=== PATIENT | male | born 1975 | race Two or more races ===

== ENCOUNTER → 2021-04-01 08:42 | Outpatient (REF) | payer OTHER, SELFPAY ==
--- NOTE | 2021-04-01 09:00 | CA_ITS ---
Acquisition Time: 2021-04-01 08:44:45 Total Exercise Time: 00:09:44 Test Indications: Chest Pain Medications: SEE CHART Protocol: DOMINGA Max HR: 190 BPM 108% of Pred: 175 BPM Max BP: 202/070 mmHG Max Work Load: 11.3 METS Exercise stress test with exercise 9 min 44 sec of Dominga protocol, achieving 108% of MPHR, 11.1 MET workload, without anginal symptoms, without arrythmia, with hypertensive response to exercise with max BP 202/70, without EKG changes meeting criteria for ischemia. In recovery BP quickly improved back to baseline. Test reviewed with Dr Lewis. Referred By: Zayda Fisher Overread By: QUINTIN CANO
== END ==
LOC: HO.CARD 08:42
PROVIDERS: Visit Provider Nurse Practitioner Family
DX: R07.89 Other chest pain (principal)
CPT/HCPCS: 93017

== ENCOUNTER 2022-01-19 09:16 | Outpatient (REF) | payer BC, SELFPAY ==
--- NOTE | ~2022-01-19 | XR_ITS ---
EXAMINATION: XR CHEST CLINICAL INFORMATION: Dyspnea. COMPARISON: None TECHNIQUE: 2 views of the chest were obtained. FINDINGS: No significant abnormality is noted involving the heart, lungs, mediastinum, bony thorax or soft tissues. XR/XR chest 2V IMPRESSION: Unremarkable chest examination.
--- NOTE | ~2022-01-19 | FL_ITS ---
EXAMINATION: XR FLUOROSCOPY UPPER GI WITH AIR CLINICAL INFORMATION: Gastroesophageal reflux disease without esophagitis. COMPARISON: None. TECHNIQUE: Routine upper GI air-contrast study was performed in upright and lying position. FINDINGS: Following oral administration of thick barium and effervescent granules, there is normal propagation of bolus from the oral cavity through the pharynx and esophagus and into the stomach without any evidence of obstruction, narrowing or stricture. On placing patient supine and prone lying, the course, caliber and peristalsis of the stomach, duodenal bulb and the sweep are normal. The mucosal pattern of the stomach and the duodenum is normal. There is minimal gastroesophageal reflux without hiatal hernia. FLUOROSCOPY TIME: 1.5 minutes. DOSE AREA PRODUCT: 34.671 uGy-m2 (microgray-meter squared). FL/FL upper GI w air IMPRESSION: Minimal gastroesophageal reflux without hiatal hernia.
[2022-01-19 09:38] LABS: MANUAL DIFF FLAG NO
[2022-01-19 09:49] LABS: Basophils Percent Auto 0.4 % (0-2); Eosinophils Absolute Auto 0.6 X10*3/uL (0.0-0.4); Eosinophils Percent Auto 8.5 % (0-4); Hematocrit 46.7 % (42.0-52.0); Hemoglobin 15.8 g/dl (14.0-18.0); Imm Gran Abs Auto 0.03 X10*3/uL (0.00-0.03); Imm Gran Pct Auto 0.4 % (0.0-0.4); Lymphocytes Absolute Auto 2.4 X10*3/uL (1.2-4.9); Lymphocytes Percent Auto 31.2 % (20-40); Mean Corpuscular HGB Conc 33.8 g/dl (31.0-36.0); Mean Corpuscular Hemoglobin 29.2 pg (27.0-33.0); Mean Corpuscular Volume 86.2 fL (80.0-98.0); Mean Platelet Volume 8.5 fL (9.4-12.4); Monocytes Absolute Auto 0.5 X10*3/uL (0.1-1.2); Monocytes Percent Auto 6.7 % (2-11); Neutrophils Percent Auto 52.8 % (45-73); Platelet Count 305 X10*3/uL (160-400); Red Blood Count 5.42 X10*6/uL (4.60-5.80); Red Cell Distribution Width 11.9 % (11.0-16.0); White Blood Count 7.6 X10*3/uL (4.8-10.8)
[2022-01-19 10:14] LABS: Alanine Aminotransferase 48 U/L (0-40); Albumin Level 4.6 g/dL (3.5-5.0); Alkaline Phosphatase 76 U/L (39-117); Anion Gap 14 (12-20); Aspartate Amino Transferase 29 U/L (5-37); Bilirubin Total 0.6 mg/dL (0.0-1.0); Blood Urea Nitrogen 16 mg/dL (9-16); Calcium 9.3 mg/dL (8.4-10.2); Carbon Dioxide 25 mmol/L (22-29); Chloride 105 mmol/L (96-108); Cholesterol 178 mg/dL; Estimated Average Glucose 111 mg/dL; Estimated Glomerular Filt Rate > 60; Glucose Fasting 100 mg/dL (60-99); HDL Cholesterol 45 mg/dL; Hemoglobin A1c % 5.5 %; LDL Cholesterol Calculated 118 mg/dl; Potassium 4.9 mmol/L (3.3-5.1); Sodium 139 mmol/L (135-145); Triglycerides 78 mg/dL
[2022-01-19 10:36] LABS: TSH reflex Free T4 0.81 uIU/mL (0.32-4.0); Vitamin D 25-OH Total 30.6 ng/mL (>30)
[2022-01-19 11:01] LABS: Appearance Urine Clear; Color Urine Yellow; Glucose Urine UA Negative (Negative); Leukocyte Esterase Urine Negative (Negative); Nitrite Urine Negative (Negative); PH 5.5 (5.0-9.0); Specific Gravity - Urine 1.015 (1.005-1.025); Urine Blood Negative (Negative); Urine Ketones Negative (Negative); Urine Protein Negative (Neg-Trace)
== END 2022-01-19 09:17 | disposition home or self-care (01) ==
LOC: HO.XRAY 09:16
PROVIDERS: PCP Internal Medicine; Visit Provider Internal Medicine
DX: R06.00 Dyspnea, unspecified (principal); K21.9 Gastro-esophageal reflux disease without esophagitis; I10 Essential (primary) hypertension; E78.00 Pure hypercholesterolemia, unspecified; R73.01 Impaired fasting glucose; E55.9 Vitamin D deficiency, unspecified
CPT/HCPCS: 36415; 71046; 74246; 80053; 80061; 81003; 82306; 83036; 84443; 85025

== ENCOUNTER 2022-05-18 08:49 | Outpatient (REF) | payer BC, SELFPAY ==
--- NOTE | 2022-05-18 10:30 | PFT_ITS ---
FLOWS: FEV1 95% of predicted at 3.72 L. FVC 95% of predicted at 4.70 L. FEV1 to FVC ratio of 0.79. Positive bronchodilator response. LUNG VOLUMES: Total lung capacity 90% of predicted at 6.13 L. Residual volume 91% of predicted at 1.74 L. Slow vital capacity 90% of predicted at 4.39 L. Expiratory reserve volume 36% of predicted at 0.54 L. Diffusion capacity is normal. IMPRESSION: No obstructive or restrictive ventilatory defect. Positive bronchodilator response. Decreased expiratory reserve volume suggests extrathoracic restriction likely secondary to abdominal obesity. Cedrick Barrientos MD AP/MODL / [id number]
== END 2022-05-18 08:50 | disposition home or self-care (01) ==
LOC: HO.RESP 08:49
PROVIDERS: PCP Internal Medicine; Visit Provider Internal Medicine
DX: R06.09 Other forms of dyspnea (principal)
CPT/HCPCS: 94060; 94727; 94729

== ENCOUNTER 2022-09-23 09:50 | Outpatient (REF) | payer BC, SELFPAY ==
[2022-09-23 11:11] LABS: Baso%MD 0.7 %; Eos%MD 9.9 %; Hematocrit 44.2 % (42.0-52.0); Hemoglobin 15.1 g/dl (14.0-18.0); IG%MD 0.3 %; Lymph%MD 34.7 %; Mean Corpuscular HGB Conc 34.2 g/dl (31.0-36.0); Mean Corpuscular Hemoglobin 29.7 pg (27.0-33.0); Mean Corpuscular Volume 86.8 fL (80.0-98.0); Mono%MD 7.6 %; Neut%MD 46.8 %; Platelet Count 319 X10*3/uL (160-400); Red Blood Count 5.09 X10*6/uL (4.60-5.80); Red Cell Distribution Width 12.4 % (11.0-16.0); White Blood Count 7.4 X10*3/uL (4.8-10.8)
[2022-09-23 12:02] LABS: Band Neutrophils Percent 1 % (3-5); Eosinophils Absolute Manual 0.4 X10*3/uL (0.0-0.4); Eosinophils Percent Manual 6 % (0-4); Lymphocytes Absolute Manual 2.7 X10*3/uL (1.2-4.9); Lymphocytes Percent Manual 36 % (20-40); Monocytes Absolute Manual 0.4 X10*3/uL (0.1-1.2); Monocytes Percent Manual 6 % (2-11); Neutrophils Absolute Manual 3.8 X10*3/uL (2.0-8.3); Neutrophils Percent Manual 51 % (45-73)
[2022-09-23 12:03] LABS: Platelet Estimate NORMAL (NORMAL); Platelet Morphology Comment NORMAL; RBC Morphology NORMAL
== END 2022-09-23 09:51 | disposition home or self-care (01) ==
LOC: HO.LAB 09:50
PROVIDERS: PCP Internal Medicine; Visit Provider Internal Medicine
DX: J45.909 Unspecified asthma, uncomplicated (principal); G47.33 Obstructive sleep apnea (adult) (pediatric); Z91.09 Other allergy status, other than to drugs and biological substances
CPT/HCPCS: 36415; 82785; 85007; 85027; 86003

== ENCOUNTER 2023-11-10 10:38 | Outpatient (AMB) | payer BC, SELFPAY ==
[2023-11-10 10:39] VITALS: BP 118/82; PULSE 87; O2SAT 98; BMI 33.4
--- NOTE | 2023-11-10 10:39 | A.OFFPC_ITS ---
Vital Signs 11/10/23 10:39 Height 5 ft 9 in Weight 226 lb 0.8 oz BMI 33.4 BP 118/82 Blood Pressure Location Lt brachial Position Sitting Pulse 87 Pulse Source Pulse Oximeter Pulse Oximetry (%) 98 Oxygen Delivery Method Room Air Intake Visit Reasons: annual exam Intake Note: Patient is here today for a physical. Cook Dinner Required: No Allergies No Known Allergies Allergy (Verified 11/10/23 11:33) Medication List - Last Reconciled 11/10/23 by David Yen MD albuterol sulfate 90 mcg/actuation (Ventolin HFA) 2 puffs inhalation Q6H PRN 30 days famotidine 20 mg PO BID PRN fluticasone propion-salmeterol 250-50 mcg/dose (Wixela Inhub) 1 inh inhalation BID pantoprazole 40 mg PO DAILY 90 days Tobacco use date assessed: 11/10/23 Dental Screening Dental Screen Date: 11/10/23 Did you have a dental visit in the last 12 months?: Yes Did you have a dental problem in the last 6 months where you did not have access to dental care?: No Was dental information given to patient?: Patient has dentist HPI annual exam HPI Details Patient comes in today for his annual physical examination States that he has been experiencing increased pain over his right shoulder for a few weeks now States that he has tried taking OTC Tylenol and ibuprofen over the past couple weeks with very little relief Relates that he has also been experiencing increased constipation lately States that he feels okay otherwise He denies any headaches or dizziness Denies any chest pains, no shortness of breath - states that his asthma has been well controlled on his current inhalers No nausea /vomiting, no abdominal pain but reports experiencing recurrent bloating sensation lately due to his recently increasing constipation States that he has noticed that he has had to wake up a few times in the middle night to go to the bathroom recently Has also noticed occasional urinary frequency at times lately; he denies any dysuria PFSH Medical History (Updated 11/11/23 @ 22:42 by David Yen MD) ZACH (obstructive sleep apnea) Allergic asthma Obesity (BMI 30-39.9) Vitamin D deficiency Impaired fasting glucose Pure hypercholesterolemia Obstructive sleep apnea GERD without esophagitis Surgical History (Updated 11/10/23 @ 11:35 by David Yen MD) Hx of appendectomy History of colonoscopy (~09/20/08) History of shoulder surgery (~2010) Family History Mother Heart disease Father Lung cancer Social History Housing: House Alcohol intake: current Alcohol intake frequency: a few times a week Patient Tobacco Use Status: Former Tobacco user e-Cigarette/Vaping Use: Never Used Second Hand Smoke Exposure: Yes service: Yes Current occupational status: retired and disabled Cognitive needs: No Hearing needs: No Vision needs: Yes Questionnaire PHQ-9 Over the last 2 weeks, how often have you been bothered by any of the following problems? 1. Little interest or pleasure in doing things: not at all 2. Feeling down, depressed, or hopeless: not at all 3. Trouble falling or staying asleep, or sleeping too much: not at all 4. Feeling tired or having little energy: not at all 5. Poor appetite or overeating: not at all 6. Feeling bad about yourself - or that you are a failure or have let yourself or your family down: not at all 7. Trouble concentrating on things, such as reading the newspaper or watching television: not at all 8. Moving or speaking so slowly that other people could have noticed. Or the opposite - being so fidgety or restless that you have been moving around a lot more than usual: not at all 9. Thoughts that you would be better off or of hurting yourself in some way: not at all Total score: 0 Depression Screening Interpretation: Negative Depression Screening Done: Yes 21189 - PHQ-9 Billing: Yes Source: Developed by Drs. Sukhi Rogers, Megan Sands, Levi Thompson and colleagues, with an educational barb from [employer]. Thrive Questionnaire Date Thrive assessed: 11/10/23 I am a: Patient What is your living situation today?: I have a steady place to live Within the past 12 months, did the food you bought not last and you didn't have the money to get more?: Never true Within the past 12 months, did you worry whether your food would run out before you got money to buy more?: Never true Do you have trouble paying for medicines?: No Do you have trouble getting transportation to medical appointments?: No Do you have trouble paying your heating and electricity bill?: No Do you have trouble taking care of your child, family member or friend?: No Do you have trouble with day-to-day activities such as bathing, preparing meals, shopping, managing finances, etc.?: No Are you currently unemployed and looking for a job?: No Are you interested in more education?: No Please select the resources that you would like help with: None Currently or been in a relationship where the following occur: No concerns reported THRIVE Score: 0 AUDIT C Alcohol Use Questionnaire (AUDIT-C) 1. How often do you have a drink containing alcohol?: Monthly or less 2. How many drinks containing alcohol do you have on a typical day when you are drinking?: 1 or 2 3. How often do you have six or more drinks on one occasion?: Never Total Score: 1 Score Reviewed/Action Taken: Yes DAYA-7 AMB Questionnaire DAYA-7 Date DAYA - 7 assessed: 11/10/23 Feeling nervous, anxious, or on edge: 0 = Not at all Not being able to stop or control worryin = Not at all Worrying too much about different things: 0 = Not at all Trouble relaxin = Not at all Being so restless that it is hard to sit still: 0 = Not at all Becoming easily annoyed or irritable: 0 = Not at all Feeling afraid as if something awful might happen: 0 = Not at all Total DAYA-7 score (0-4 normal; 5-9 mild; 10-14 moderate; 15-21 severe): 0 Source: Developed by Drs. Sukhi Rogers, Megan Sands, Levi Thompson and colleagues, with an educational barb from [employer]. Review of Systems Const Denies chills, Denies fatigue, Denies fever(s), Denies headache(s), Denies malaise and Denies weakness Eyes Denies blurry vision, Denies change in vision, Denies irritation and Denies itchy eyes ENT Denies dysphagia, Denies dizziness, Denies otalgia, Denies headache(s), Denies nasal congestion, Denies neck pain, Denies odynophagia and Denies sore throat Card Denies chest pain, Denies rapid heart rate, Denies irregular heart rhythm, Denies palpitations and Denies dyspnea Resp Denies chest congestion, Denies cough, Denies dyspnea and Denies wheezing GI Denies abdominal pain, Reports bloating (frequent lately), Reports constipation (increasing), Denies dysphagia, Denies heartburn, Denies diarrhea, Denies nausea, Denies odynophagia and Denies vomiting Denies hematuria, Denies difficulty urinating, Denies dysuria, Reports nocturia (at times), Reports urinary frequency (recently) and Denies urinary urgency Musc Denies back pain, Reports arthralgias (increased over the right shoulder), Denies joint swelling, Denies muscle weakness and Denies neck pain Skin/Breast Denies change in pigmentation, Denies lesions, Denies rash and Denies unusual bruising Neuro Denies dizziness, Denies headache(s), Denies paresthesias and Denies weakness Endo Denies fatigue and Denies palpitations Aller/Immun Denies itchy eyes and Denies wheezing Physical exam (Primary Care) Vital Signs: Last Vital Signs Pulse 87 11/10/23 10:39 BP 118/82 11/10/23 10:39 Pulse Ox 98 11/10/23 10:39 Oxygen Delivery Method Room Air 11/10/23 10:39 BMI result Body Mass Index 33.4 Tobacco/Smoking Status: Tobacco use Status Tobacco use date assessed 11/10/23 11/10/23 10:40 Patient Tobacco Use Status Former Tobacco user 11/10/23 10:40 e-Cigarette/Vaping Use Never Used 11/10/23 10:40 PHQ-9: PHQ-9 Score PHQ-9: Total score 0 11/10/23 11:50 Depression Screening Interpretation: Negative Thrive Assessment: Date of Thrive Assessment Date Thrive assessed 11/10/23 11/10/23 10:40 Currently or been in a relationship where the following occur: No concerns reported Const General: no acute distress, alert and awake Orientation/consciousness: patient oriented x3 HENMT Head: Yes normocephalic and Yes atraumatic Ears: external ears normal, TM's normal bilaterally and EAC's normal General nose exam: No nasal discharge present Face and sinus: Yes normal facial exam and Yes sinuses nontender Teeth and gingiva: dentition normal Throat: Yes posterior oropharynx normal and Yes tonsils normal (no TP congestion) Eyes Eyelids: Yes eyelids normal Conjunctivae: conjunctivae normal Pupils: Equal, round and reactive pupils present EOM: EOMs intact bilaterally Neck Neck: Yes no lymphadenopathy and Yes supple Thyroid: Thyroid normal Resp Auscultation: clear to auscultation bilaterally, no rales and no wheezes Cardio Rate: regular rate Rhythm: regular rhythm Heart sounds: no murmurs GI Palpation (GI): Soft to palpation, nontender and No hepatosplenomegaly present Auscultation: normal bowel sounds General: Yes no CVA tenderness Back/Spine/Pelvis Back: no CVA tenderness Thoracic/Lumbar Spine: thoracic and lumbar spine normal to inspection Skin Lesions: no lesions Rashes: no rashes Neuro General: patient oriented x3, moves all extremities, no focal motor deficits and CN's II-XI intact bilaterally Cranial nerves: Yes Equal, round and reactive pupils present Cognition (Neuro): normal cognition Gait exam (Neuro): Normal gait present Extrem General: Yes no clubbing, cyanosis or edema Right upper extremity: shoulder/upper arm Details: tenderness Location: of the A-C joint; no swelling Assessment and Plan Assessment & Plan (1) Annual physical exam: Code(s): Z00.00 - Encounter for general adult medical examination without abnormal findings Plan: Check labs (2) Right shoulder pain: Code(s): M25.511 - Pain in right shoulder Qualifiers: Chronicity: acute Qualified Code(s): M25.511 - Pain in right shoulder Plan: Will send patient for x-rays of the right shoulder for further evaluation Will start him for now on Tramadol 50 mg TID PRN for increased pain (3) Constipation: Code(s): K59.00 - Constipation, unspecified Qualifiers: Constipation type: unspecified constipation type Qualified Code(s): K59.00 - Constipation, unspecified Plan: Patient is encouraged to increase his oral fluids and dietary fiber intake Will start him on Senna 8.6 mg 1 to 2 tablets Q HS PRN (4) Allergic asthma: Comment: Longstanding history, Eiosinophilia , 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 Patient was educated in detail about this. A list of possible triggers was discussed with him. Baseline allergy testing ordered ( CBC with diff, IgE level, RAST allergens test ) TX : Flovent-220 2 puffs b.i.d. ( changed from Flovent -110 ) Albuterol HFA 2 puffs Q 4-6 hours p.r.n.. Code(s): J45.909 - Unspecified asthma, uncomplicated Qualifiers: Asthma severity: unspecified severity Asthma persistence: unspecified Asthma complication type: unspecified Qualified Code(s): J45.909 - Unspecified asthma, uncomplicated Plan: Continue Wixela Inhub 250-50 mcg 1 inhalation BID and Albuterol HFA 2 inhalations Q 6 hours PRN Follow up with Pulmonary (Dr. Augustine) as scheduled (5) ZACH (obstructive sleep apnea): Comment: Patient has typical symptoms of obstructive sleep apnea. 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 Patient is educated about these underlying causes of his ZACH. He is also educated that he has problem of ZACH separate from bronchial asthma and it needs to be treated. TX : He already does have CPAP device at home, He would like to use full face mask , with soft lining . I ADVISED HIM TO CONTACT THE [facility] , OUTPATIENT SERVICE , FOR MANAGEMENT OF HIS SLEEP APNEA. IF THEY WOULD REFER HIM FOR ONGOING MANAGEMENT OF THE ZACH TO ME THEN ALL BE GLAD TO TAKE CARE OF THAT. Code(s): G47.33 - Obstructive sleep apnea (adult) (pediatric) Plan: Patient has been reportedly diagnosed with ZACH with a sleep study done at the [facility] a few years ago Continue using his CPAP device when sleeping at night [facility] but has been advised by Dr. Augustine that they can also start seeing him and managing him for his ZACH but he has to get a referral from the [facility] first for insurance purposes (6) GERD without esophagitis: Code(s): K21.9 - Gastro-esophageal reflux disease without esophagitis Plan: Reinforced dietary restrictions Upper GI series done in January 2022 revealed (+) minimal GERD, with no hiatal hernia seen He was previously on Omeprazole 20 mg QD but patient feels that the Rx was not helping and he was switched over to Pantoprazole 40 mg QD last year Patient states that he has been doing much better on Pantoprazole 40 mg QD (7) Impaired fasting glucose: Code(s): R73.01 - Impaired fasting glucose Plan: FBS was elevated on his previous labs in 2019 but was normal at 100 mg/dl on his labs done a couple of years ago; he did not get his labs done last year HgbA1c was also normal at 5.5% then Reinforced low calorie diet/exercise as tolerated (8) Elevated LFTs: Code(s): R79.89 - Other specified abnormal findings of blood chemistry Plan: Most likely related to his weight (hepatosteatosis) and cholesterol and should improve with weight loss Will continue to monitor his LFTs regularly (9) Vitamin D deficiency: Code(s): E55.9 - Vitamin D deficiency, unspecified Plan: This was previously corrected Will recheck Vitamin D level for follow up (10) Urinary frequency: Code(s): R35.0 - Frequency of micturition Plan: Patient is advised that this may be due to prostate hypertrophy Will include a serum PSA level with his labs and patient is instructed to get his lab done [facility] ALBERTO (11) Obesity (BMI 30-39.9): Code(s): E66.9 - Obesity, unspecified Plan: Reinforced diet/exercise as tolerated/lose weight (12) Colon cancer screening: Code(s): Z12.11 - Encounter for screening for malignant neoplasm of colon Plan: Will refer patient to GI for screening colonoscopy Plan Follow up in 6 months Orders: Orders XR shoulder RT min 2V 11/10/23 M25.511 - Pain in right shoulder Comprehensive [place]. Panel Fast 11/10/23 E78.00 - Pure hypercholesterolemia, unspecified, Z00.00 - Encounter for general adult medical examination without abnormal findings UA CC w/rflx Micro + Cult 11/10/23 R30.0 - Dysuria, Z00.00 - Encounter for general adult medical examination without abnormal findings Vitamin D 25-OH Total 11/10/23 E55.9 - Vitamin D deficiency, unspecified, Z00.00 - Encounter for general adult medical examination without abnormal findings Prostate Specific Antigen 11/10/23 N40.0 - Benign prostatic hyperplasia without lower urinary tract symptoms, Z00.00 - Encounter for general adult medical examination without abnormal findings Complete Blood Count Auto Diff 11/10/23 D64.9 - Anemia, unspecified, Z00.00 - Encounter for general adult medical examination without abnormal findings Lipid Panel 11/10/23 E78.00 - Pure hypercholesterolemia, unspecified, Z00.00 - Encounter for general adult medical examination without abnormal findings TSH reflex Free T4 11/10/23 E78.00 - Pure hypercholesterolemia, unspecified, Z00.00 - Encounter for general adult medical examination without abnormal findings Referrals Gastroenterology Referral Z12.11 - Encounter for screening for malignant neoplasm of colon Medications: New sennosides (senna) 8.6 mg PO BEDTIME 30 days PRN 60 tabs 3RF constipation tramadol Take as needed ONLY for severe pain 50 mg PO BID PRN 60 tabs 0RF shoulder pain Coding Level of Care Code Est Pt Prev Care 40-64y([id number]) Diagnoses Annual physical exam Z00.00 Acute pain of right shoulder M25.511 Chronicity: acute Constipation, unspecified constipation type K59.00 Constipation type: unspecified constipation type Extrinsic asthma, unspecified asthma severity, unspecified whether complicated, unspecified whether persistent J45.909 Asthma severity: unspecified severity Asthma persistence: unspecified Asthma complication type: unspecified ZACH (obstructive sleep apnea) G47.33 GERD without esophagitis K21.9 Impaired fasting glucose R73.01 Elevated LFTs R79.89 Vitamin D deficiency E55.9 Urinary frequency R35.0 Obesity (BMI 30-39.9) E66.9 Colon cancer screening Z12.11
== END 2023-11-10 11:57 | disposition home or self-care (01) ==
PROVIDERS: PCP Internal Medicine; Visit Provider Internal Medicine
DX: Z00.00 Encounter for general adult medical examination without abnormal findings (principal); M25.511 Pain in right shoulder; K59.00 Constipation, unspecified; J45.909 Unspecified asthma, uncomplicated; G47.33 Obstructive sleep apnea (adult) (pediatric); K21.9 Gastro-esophageal reflux disease without esophagitis; R73.01 Impaired fasting glucose; R79.89 Other specified abnormal findings of blood chemistry; E55.9 Vitamin D deficiency, unspecified; R35.0 Frequency of micturition; E66.9 Obesity, unspecified; Z12.11 Encounter for screening for malignant neoplasm of colon
CPT/HCPCS: 99396

== ENCOUNTER 2023-11-15 09:26 | Outpatient (REF) | payer BC, SELFPAY ==
--- NOTE | ~2023-11-15 | XR_ITS ---
EXAMINATION: XR SHOULDER, RIGHT CLINICAL INFORMATION: Right shoulder pain COMPARISON: Radiographs 12/27/2017 TECHNIQUE: AP external rotation, Grashey, scapular Y, and axillary views of the right shoulder. FINDINGS: Evidence of supraspinatus tendon repair with anchor in place. Mild acromioclavicular and glenohumeral osteoarthritis, not significantly changed. No new abnormality. XR/XR shoulder RT min 2V IMPRESSION: Mild acromioclavicular and glenohumeral osteoarthritis. Evidence of supraspinatus tendon repair.
[2023-11-15 09:41] LABS: MANUAL DIFF FLAG NO
[2023-11-15 10:24] LABS: Appearance Urine Clear; Color Urine Yellow; Glucose Urine UA Negative (Negative); Leukocyte Esterase Urine Negative (Negative); Nitrite Urine Negative (Negative); PH 5.5 (5.0-9.0); Urine Blood Negative (Negative); Urine Ketones Negative (Negative); Urine Protein Trace mg/dL (Neg-Trace)
[2023-11-15 10:25] LABS: Basophils Absolute Auto 0.1 X10*3/uL (0.0-0.2); Basophils Percent Auto 0.7 % (0-2); Eosinophils Absolute Auto 0.6 X10*3/uL (0.0-0.4); Eosinophils Percent Auto 8.3 % (0-4); Hematocrit 46.8 % (42.0-52.0); Hemoglobin 15.8 g/dl (14.0-18.0); Imm Gran Abs Auto 0.02 X10*3/uL (0.00-0.03); Imm Gran Pct Auto 0.3 % (0.0-0.4); Lymphocytes Absolute Auto 2.4 X10*3/uL (1.2-4.9); Lymphocytes Percent Auto 34.5 % (20-40); Mean Corpuscular HGB Conc 33.8 g/dl (31.0-36.0); Mean Corpuscular Hemoglobin 29.2 pg (27.0-33.0); Mean Corpuscular Volume 86.5 fL (80.0-98.0); Mean Platelet Volume 8.9 fL (9.4-12.4); Monocytes Absolute Auto 0.6 X10*3/uL (0.1-1.2); Neutrophils Absolute Auto 3.4 x10*3/uL (2.0-8.3); Neutrophils Percent Auto 48.2 % (45-73); Platelet Count 356 X10*3/uL (160-400); Red Blood Count 5.41 X10*6/uL (4.60-5.80); Red Cell Distribution Width 12.5 % (11.0-16.0)
[2023-11-15 10:54] LABS: Alanine Aminotransferase 38 U/L (0-40); Albumin Level 4.5 g/dL (3.5-5.0); Alkaline Phosphatase 78 U/L (39-117); Anion Gap 12 (12-20); Aspartate Amino Transferase 25 U/L (5-37); Bilirubin Total 0.5 mg/dL (0.0-1.0); Blood Urea Nitrogen 19 mg/dL (9-16); Calcium 9.6 mg/dL (8.4-10.2); Carbon Dioxide 24 mmol/L (22-29); Chloride 109 mmol/L (96-108); Cholesterol 191 mg/dL (<200); Estimated Glomerular Filt Rate > 60; Glucose Fasting 116 mg/dL (60-99); HDL Cholesterol 42 mg/dL (>40); LDL Cholesterol Calculated 136 mg/dL (<100); Potassium 4.1 mmol/L (3.3-5.1); Sodium 141 mmol/L (135-145); Total Protein 8.1 g/dL (6.5-8.0); Triglycerides 68 mg/dL (<150)
[2023-11-15 11:10] LABS: Prostate Specific Antigen 0.52 ng/mL (<0.05-4.0)
[2023-11-15 11:12] LABS: TSH reflex Free T4 0.86 uIU/mL (0.32-4.0); Vitamin D 25-OH Total 33.6 ng/mL (>30)
== END 2023-11-15 09:27 | disposition home or self-care (01) ==
LOC: HO.LAB 09:26
PROVIDERS: PCP Internal Medicine; Visit Provider Internal Medicine
DX: Z00.00 Encounter for general adult medical examination without abnormal findings (principal); E78.00 Pure hypercholesterolemia, unspecified; R30.0 Dysuria; D64.9 Anemia, unspecified; E55.9 Vitamin D deficiency, unspecified; N40.0 Benign prostatic hyperplasia without lower urinary tract symptoms; M25.511 Pain in right shoulder; Z12.5 Encounter for screening for malignant neoplasm of prostate
CPT/HCPCS: 36415; 73030; 80053; 80061; 81003; 82306; 84153; 84443; 85025

== ENCOUNTER 2024-05-12 10:23 | Outpatient (AMB) | payer BC, SELFPAY ==
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
[2024-05-12 10:34] VITALS: BP 104/82; PULSE 89; O2SAT 6; BMI 35.6
--- OUTSIDE RECORDS SUMMARY | 2024-05-12 11:47 | XMS_ITS ---
Author Name [facility] Organization [facility] Address [address] [place] [address] Care Team Providers Care Sharebroker Name Role Phone MITCH SALAS Primary Care Provider Unavailabl e Insurance Providers: All historical and current Section Date Range: From patient's date of to the date document was created. This section includes the names of all active insurance providers for the patient. Insurance Provider Type of Coverage Plan Name Start of Policy Coverage End of Policy Coverage Group Number Member ID Insurance Provider's Telephone Number Policy Aldridge's Name Patient's Relationship to Policy Aldridge BCBS ALONSO (BLUE CARD) PREFERRED PROVIDER ORGANIZAT ION (PPO) [facility] Dec 08, 2017 [id number] REGGIE MANN IE SPOUSE [place] PRESCRIPT ION [facility] May 10, 2012 [id number] [phone] REGGIE MANN IE SPOUSE [place] PRESCRIPT ION [facility] May 10, 2012 [id number] [phone] REGGIE MANN IE SPOUSE Selected Encounter This section includes the information on record at [place] for the Encounter. Date/Time Encounter Type Encounter Description Reason Pro vider Source Jun 22, 2023 10:32 AM Outpatient Encounter SLEEP MEDICINE [facility] Encounter Template Text not used by [place] Plan of Treatment: Future Appointments (+ 6 months) and Future Tests (+/- 45 days) The Plan of Treatment section includes future care activities for the patient from all [facility]. This section includes future appointments and future orders which are active, pending or scheduled. Future Appointments This section includes appointments that were scheduled to occur 6 months from the date of the Encounter, up to a maximum of 20 appointments. The data comes from all [place] treatment facilities. Appointment Date/Time Appointment Type Appointme nt Facility Name Oct 12, 2023 10:00 AM AMBULATORY - NONE [facility] Lab Results: +/- 30 days of the encounter This section includes the Chemistry and Hematology Lab Results on record with [facility] for the patient. Radiology Reports and Pathology Reports are provided separately, in subsequent sections. Lab Results This section contains the Chemistry/Hematology Results that were resulted 30 days before or 30 daysafter the date of the Encounter. Date/Time Source Result Type Result - Unit Interpretation Reference Range Comment Jun 22, 2023 10:25 AM [facility] LIPID PANEL FASTING Specimen Type: SERUM No comment entered. Ordering Provider: MITCH SALAS Report Released Date/Time: Jun 22, 2023 09:57 AM Reporting Lab: [facility] [address] [id number] Performing Lab: [facility] [address] [address] CHOLESTEROL 184 mg/dL TRIGLYCERIDE 159 mg/dL H 0-150 LDL calculated 108 mg/dL 0-129 CHOL/HDL 4.2 HDL CHOLESTEROL 44 mg/dL 40-60 Jun 22, 2023 10:25 AM [facility] BASIC METABOLIC PANEL (non-fasting) Specimen Type: SERUM No comment entered. Ordering Provider: MITCH SALAS Report Released Date/Time: Jun 22, 2023 09:57 AM Reporting Lab: [facility] [address] [id number] Performing Lab: [address] [phone] UREA NITROGEN 17 mg/dL 7-25 GLUCOSE 95 mg/dL 65-100 SODIUM 142 mmol/L 135-145 POTASSIUM 4.2 mmol/L 3.5-5.0 CHLORIDE 107 mmol/L 100-110 CO2 26 meq/L 20-30 CREATININE, Serum 1.19 mg/dL 0.50-1.40 eGFR(CKD-EPI 2020) 75 mL/min >60 Jun 22, 2023 10:25 AM [facility] LIVER FUNCTION Specimen Type: SERUM No comment entered. Ordering Provider: MITCH SALAS Report Released Date/Time: Jun 22, 2023 09:57 AM Reporting Lab: [facility] [address] [phone] Performing Lab: [address] [phone] PROTEIN,TOTAL 7.7 g/dL 6.0-8.3 ALBUMIN 4.1 g/dL 3.5-5.0 ALKALINE PHOSPHATASE 70 U/L 40-150 AST 23 U/L 5-34 ALT 35 U/L BILIRUBIN, TOTAL 0.8 mg/dL 0.2-1.2 Jun 22, 2023 10:25 AM [facility] HEMOGLOBIN A1C PANEL Specimen Type: BLOOD Comment: Values obtained from A1C measurements can vary. For atypical A1C assays, a reported value of 7.0 could actually be between 6.72 and 7.28 if measured by a reference method. A reported value of 9.0 could actually be between 8.73 and 9.27. Ref: http://www.ngs p.org/CAPdata. asp Ordering Provider: MITCH SALAS Report Released Date/Time: Jun 22, 2023 09:57 AM Reporting Lab: [address] [id number] Performing Lab: [address] [address] HEMOGLOBIN A1C 5.5 4.0-5.6 Jun 22, 2023 10:25 AM [facility] TSH Specimen Type: SERUM No comment entered. Ordering Provider: MITCH SALAS Report Released Date/Time: Jun 22, 2023 09:57 AM Reporting Lab: [address] [address] Performing Lab: [address] [address] TSH 0.72 u[IU]/mL 0.35-5.00 Jun 22, 2023 10:25 AM [facility] CBC AND DIFF (AUTO) Specimen Type: BLOOD No comment entered. Ordering Provider: MITCH SALAS Report Released Date/Time: Jun 22, 2023 09:57 AM Reporting Lab: [facility] [address] [phone] Performing Lab: [facility] [address] [address] WBC 7.25 10*3/uL 4.50-11.00 RBC 5.23 10*6/uL 4.23-5.66 HGB 15.0 g/dL 12.8-17 HCT 45.0 39.2-50.4 MCV 86.0 fL 82-99 MCHC 33.3 g/dL 30.8-35.1 PLT 334 10*3/uL 140-360 RDW-CV 12.4 12.0-16.0 [place], Abs 0.44 10*3/uL 0.30-1.10 MCH 28.7 pg 26.2-32.6 Neut % 59.6 43.7-75.8 Lymph % 28.3 14.0-42.3 [place] % 6.1 5.1-13.7 Eos % 5.0 0.4-6.8 Baso % 0.6 0.1-2.0 Neut, Abs 4.33 10*3/uL 2.20-7.60 Lymph, Abs 2.05 10*3/uL 1.00-3.20 Eos, Abs 0.36 10*3/uL 0.03-0.44 Baso, Abs 0.04 10*3/uL 0.01-0.13 Immature Gran % 0.4 0.0-0.7 Immature Gran, Abs 0.03 10*3/uL 0.00-0.06 Vital Signs: All taken on the encounter date This section contains inpatient and outpatient Vital Signs collected on the date of the Encounter. Date/Time Temperature Pulse Blood Pressure Respiratory Rate SP02 Pain Height Weight Body Mass Index Source Jun 22, 2023 09:19 AM 98.9 92 114/75 16 96 0 69 226 33 [facility] [place] [facility] Social History: Smoking Status (Most current) and Tobacco Use (All prior to encounter date) This section includes the most current, and the historical, smoking and tobacco- related health factors from the [place] facility where the Encounter took place. Current Smoking Status This section includes the most current smoking, or tobacco-related health factor, from the [place] facility where the Encounter took place. Date/Time Current Smoking Status Comment Facil ity Jun 22, 2023 09:30 AM [facility]-TOBACCO FORMER [facility]ER [facility] Tobacco Use History This section includes a history of the smoking, or tobacco-related health factors, that were collected on or before the date of the Encounter. The data comes from the [place] facility where the Encounter took place. Date/Time Smoking Status/Tobacco Use Comment [facility] Jun 22, 2023 09:30 AM VA-TOBACCO QUIT 15 YRS OR MORE [facility] [place] [facility] Apr 07, 2023 10:30 AM -BPR SMOKING DEP LOYMENT YES [facility] [place] [facility] Jun 22, 2022 09:30 AM VA-TOBACCO FORMER USER [facility] [place] [facility] Jun 22, 2022 09:30 AM VA-TOBACCO QUIT 15 YRS OR MORE [facility] [place] [facility] Feb 28, 2021 09:30 AM VA-TOBACCO FORMER USER [facility] [place] [facility] Feb 28, 2021 09:30 AM VA-TOBACCO QUIT 15 YRS OR MORE [facility] [place] [facility] September 22, 2018 11:06 AM VA-TOBACCO FORMER USER [facility] [place] [facility] September 22, 2018 11:06 AM VA-TOBACCO QUIT 15 YRS OR MORE [facility] [place] [facility] Dec 22, 2005 09:44 AM QUIT TOBACCO USE > 7 YEARS AGO 10 YEARS AGO [facility] [place] [facility] Feb 22, 2003 02:39 PM HISTORY OF SMOKING [facility] [place] [facility] Feb 22, 2003 02:39 PM QUIT TOBACCO USE 1 -7 [facility] [place] [facility] Encounter Notes: All associated encounter notes This section contains the clinical notes associated to the Encounter. Date/Time Encounter Note(s) Provider Source Jun 22, 2023 10:32 AM LETTERS: LOCAL TITLE: PATIENT LETTER (B) STANDARD TITLE: LETTERS DATE OF NOTE: JUN 22, 2023@10:32 ENTRY DATE: JUN 22, 2023@10:33:21 AUTHOR: BRYCE ZIMMERMAN EXP COSIGNER: URGENCY: STATUS: COMPLETED JUN 22, [address] [place] [id number] Dear TRAV MANN We would like to assist you in scheduling a RESPIRATORY THERAPY appointment at the [place]. We have been unable to reach you by phone. To schedule this appointment please call toll free Ext [phone]. Our booking appointment hours are Wednesday through Wednesday from 8:00 am to 4:00 pm. Please leave a message if you receive voicemail and let us know a good time and telephone number where we can reach you. If we dont hear back from you within 14 days from the date of this letter we will discontinue the request. If you have already scheduled this appointment, please disregard this letter. Your health is important to us. Sincerely, [facility] [address] [facility] [address] [place] [address] [place] [address] ext. [phone] [facility] [address] [facility] [address] [place] [address] [place] [address] [phone] [facility] [address] [facility] [address] [place] [address] [place] [address] ext. [phone] [facility] [address] [place] [address] ext. [phone] BRYCE ZIMMERMAN [place] [facility]
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
--- OUTSIDE RECORDS SUMMARY | 2024-05-12 11:47 | XMS_ITS ---
Author Name Department of Vetera Affairs (VA) Organization Department of Vetera Affairs ([place]) Address [address] [place] [address] Care Team Providers Care Arc Cutter Name Role Phone MITCH SALAS Primary Care [...] (BLUE CARD) PREFERRED PROVIDER ORGANIZAT ION (PPO) [facility] Dec 08, 2017 [id number] REGGIE MANN IE SPOUSE [place] PRESCRIPT ION [facility] May 10, 2012 [id number] [phone] REGGIE MANN IE SPOUSE [place] PRESCRIPT ION [facility] May 10, 2012 [id number] REGGIE MANN IE SPOUSE Selected Encounter This section includes the information on record at OR for the Encounter. Date/Time Encounter Type Encounter Description Reason Pro vider Source May 18, 2023 12:00 PM Outpatient Encounter COMMUNITY CARE CONSULT IHE Encounter Template Text not used by VA Plan of Treatment: Future Appointments (+ 6 [...] 20 appointments. The data comes from all [place] treatment facilities. Appointment Date/Time Appointment Type Appointme nt Facility Name Jun 22, 2023 09:30 AM AMBULATORY - MEDICINE [place] [facility] [place] [facility] Oct 12, 2023 10:00 AM [facility]BULATORY [facility] NONE [facility] Social History: Smoking Status (Most current) and Tobacco Use (All prior to encounter date) This section includes the most current, and the historical, smoking and tobacco- related health factors from the VA facility where the Encounter took place. Current Smoking Status This section includes the most current smoking, or tobacco-related health factor, from the [place] facility where the Encounter took place. Date/Time Current Smoking Status Comment Facil ity Apr 07, 2023 10:30 AM AH-BPR SMOKING DEP LOYMENT YES [facility] Tobacco Use History This section includes a history of the smoking, or tobacco-related health factors, that were collected on or before the date of the Encounter. The data comes from the [place] facility where the Encounter took place. Date/Time Smoking Status/Tobacco Use Comment F acility Jun 22, 2022 09:30 AM VA-TOBACCO FORMER USER [place] [facility] [place] [facility] Jun 22, 2022 09:30 AM VA-TOBACCO QUIT 15 YRS OR MORE OR [facility] [place] [facility] Feb 28, 2021 09:30 AM VA-TOBACCO FORMER USER [place] [facility] [place] [facility] Feb 28, 2021 09:30 AM VA-TOBACCO QUIT 15 YRS OR MORE OR [facility] [place] [facility] September 22, 2018 11:06 AM VA-TOBACCO FORMER USER [place] [facility] [place] [facility] September 22, 2018 11:06 AM VA-TOBACCO QUIT 15 YRS OR MORE OR [facility] [place] [facility] Dec 22, 2005 09:44 AM QUIT TOBACCO USE > 7 YEARS AGO 10 YEARS AGO [place] [facility] [place] [facility] Feb 22, 2003 02:39 PM HISTORY OF SMOKING [place] [facility] [place] [facility] Feb 22, 2003 02:39 PM QUIT TOBACCO USE 1 -7 YEARS AGO [facility] Encounter Notes: All associated encounter notes This section contains the clinical notes associated to the Encounter. Date/Time Encounter Note(s) Provider Source May 18, 2023 12:00 PM NONVA CONSULT: LOCAL TITLE: COMMUNITY CARE-CONSULT RESULT COLONOSCOPY STANDARD TITLE: NONVA CONSULT DATE OF NOTE: MAY 18, 2023@12:00 ENTRY DATE: JUL 19, 2023@09:07:30 AUTHOR: PAOLA LEMONS EXP COSIGNER: URGENCY: STATUS: COMPLETED VistA Imaging - Scanned Document SCANNED DOCUMENT SIGNATURE NOT REQUIRED Electronically Filed: 07/19/2023 by: PAOLA LU [facility]
--- OUTSIDE RECORDS SUMMARY | 2024-05-12 11:47 | XMS_ITS ---
Author Name [facility] [facility] [place] [facility] [place] [facility] [place] Address [address] [place] [address] Care Team Providers Care Pump House Engineer Name Role Phone MITCH SALAS Primary Care [...] (BLUE CARD) PREFERRED PROVIDER ORGANIZAT ION (PPO) [facility] Dec 08, 2017 [id number] REGGIE MANN IE SPOUSE [employer]EM[employer] PRESCRIPT ION [facility] May 10, 2012 [id number] REGGIE MANN IE SPOUSE [place] PRESCRIPT ION [facility] May 10, 2012 [id number] REGGIE MANN IE SPOUSE Selected Encounter This section includes the information on record at [place] for the Encounter. Date/Time Encounter Type Encounter Description Reason Pro vider Source September 16, 2023 01:53 PM Outpatient Encounter ADMIN PAT ACTIVTIES (MASNONCT) IHE Encounter Template Text not used by [...] 20 appointments. The data comes from all [facility] facilities. Appointment Date/Time Appointment Type Appointme nt Facility Name Oct 12, 2023 10:00 AM AMBULATORY - NONE [facility] Active, Pending, and Scheduled Orders This section includes a listing of several types of active, pending, and scheduled orders, including clinic medications orders, diagnostic test orders, procedure orders and consult orders; where the start date of the order is 45 days before the date of the Encounter or 45 days after the date of theEncounter. The data comes from all [facility] facilities. Test Date/Time Test Type Test Details Facility Name September 21, 2023 12:00 AM Laboratory - Chemi stry Order DEPLETED URANIUM PANEL DU KIT URINE SP [facility] Social History: Smoking Status (Most current) and Tobacco Use (All prior to encounter date) This section includes the most current, and the historical, smoking and tobacco- related health factors from the [place] facility where the Encounter took place. Current Smoking Status This section includes the most current smoking, or tobacco-related health factor, from the [place] facility where the Encounter took place. Date/Time Current Smoking Status Comment Facil ity Jun 22, 2023 09:30 AM [facility] Tobacco Use History This section includes a history of the smoking, or tobacco-related health factors, that were collected on or before the date of the Encounter. The data comes from the [place] facility where the Encounter took place. Date/Time Smoking Status/Tobacco Use Comment F acility Jun 22, 2023 09:30 AM VA-TOBACCO QUIT 15 YRS OR MORE [place] [facility] [place] [facility] Apr 07, 2023 10:30 AM AH-BPR SMOKING [facility]P [facility] [place] [facility] Jun 22, 2022 09:30 AM VA-TOBACCO [facility] Jun 22, 2022 09:30 AM VA-TOBACCO QUIT 15 YRS OR [facility] Feb 28, 2021 09:30 AM [facility]AC[facility] Feb 28, 2021 09:30 AM VA-TOBACCO QUIT 15 YRS OR MORE [facility] September 22, 2018 11:06 AM VA-TOBACCO FORMER USER [place] [facility] September 22, 2018 11:06 AM VA-TOBACCO QUIT [facility] Dec 22, 2005 09:44 AM QUIT TOBACCO USE > 7 YEARS AGO 10 YEARS A[facility] Feb 22, 2003 02:39 PM [facility] Feb 22, 2003 02:39 PM QUIT TOBACCO USE 1 -[facility] Encounter Notes: All associated encounter notes This section contains the clinical notes associated to the Encounter. Date/Time Encounter Note(s) Provider Source September 16, 2023 02:40 PM ADDENDUM: LOCAL TITLE: Addendum STANDARD TITLE: ADDENDUM DATE OF NOTE: SEPTEMBER 16, 2023@14:40:10 ENTRY DATE: SEPTEMBER 16, 2023@14:40:11 AUTHOR: NATALIIA GIBBS COSIGNER: URGENCY: STATUS: COMPLETED Forwarding medication request to provider /chandu/ NATALIIA GIBBS, MSN, RN, CNL PRIMARY CARE TEAM NURSE Signed: 09/16/2023 14:40 Receipt Acknowledged By: 09/16/2023 15:33 /es/ ROSA ELAINE Nurse Practitioner ====== --- Original Document --- 09/16/23 V1 PHARMACY CUSTOMER CARE MEDICATION RENEWAL: Date: September Division: [facility] referred by Pharmacy Call Center for medication renewal: Non-controlled/maintenan ce medication Medications requested: [id number] SILDENAFIL CITRATE 100MG TAB Defer to primary care provider To be mailed . Please review and renew if appropriate. *This note was generated by [facility] Customer Care. If you have any questions or need assistance, do not contact this author. Please refer all questions to your local, on-site pharmacy departments. /chandu/ TERESO VILLARREAL CPhT PTA, [place]/PHARMACY CUSTOMER CARE Signed: 09/16/2023 13:54 Receipt Acknowledged By: * AWAITING SIGNATURE * ARISTEO JONES 09/16/2023 14:40 /chandu/ ANTALIIA GIBBS MSN, RN, CNL PRIMARY CARE TEAM NURSE NATALIIA GIBBS [facility] September 16, 2023 01:53 PM PHARMACY NOTE: LOCAL TITLE: V1 PHARMACY CUSTOMER CARE MEDICATION RENEWAL STANDARD TITLE: PHARMACY NOTE DATE OF NOTE: SEPTEMBER 16, 2023@13:53 ENTRY DATE: SEPTEMBER 16, 2023@13:53:59 AUTHOR: TERESO VILLARREAL EXP COSIGNER: URGENCY: STATUS: COMPLETED PHARMACY CUSTOMER CARE MEDICATION RENEWAL Has ADDENDA Date: September Division: [facility] referred by Pharmacy Call Center for medication renewal: Non-controlled/maintenan ce medication Medications requested: [id number] SILDENAFIL CITRATE 100MG TAB Defer to primary care provider To be mailed . Please review and renew if appropriate. *This note was generated by [facility] Customer [facility]. If you have any questions or need assistance, do not contact this author. Please refer all questions to your local, on-site pharmacy departments. /chandu/ TERESO VILLARREAL CPhT PTA, [place]/PHARMACY CUSTOMER CARE Signed: 09/16/2023 13:54 Receipt Acknowledged By: 09/17/2023 18:47 /chandu/ ARISTEO JONES NP NURSE PRACTITIONER 09/16/2023 14:40 /chandu/ NATALIIA GIBBS, MSN, RN, CNL PRIMARY CARE TEAM NURSE 09/16/2023 ADDENDUM STATUS: COMPLETED Forwarding medication request to provider /breana GIBBS MSN, RN, CNL PRIMARY CARE TEAM NURSE Signed: 09/16/2023 14:40 Receipt Acknowledged By: 09/16/2023 15:33 /chandu/ ROSA ELAINE Nurse Practitioner TERESO VILLARREAL [facility]L [facility]
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
--- OUTSIDE RECORDS SUMMARY | 2024-05-12 11:47 | XMS_ITS ---
Author Organization [facility] Address [address] [place] [address] Care Team Providers Care General Claims Agent Name Role Phone Eric Yen MDneth Primary Care Provider Sukhi Ramos [phone] ALLERGIES No Known Allergies REASON FOR VISIT Patient presents today for a colon screening MEDICATIONS Medication SIG (Take, Route, Frequency, Duration) [...] Notes Problem Dysphagia (R13.10) Active confirmed Dysphagia (42137328) Problem Colon cancer screening (Z12.11) Active confirmed Colon cancer screening (918397565) Problem Chronic constipation (K59.09) Active confirmed Chronic constipation (620900252) VITAL SIGNS BMI 35.29 kg/m2 03/30/2024 Blood pressure systolic 00 mm Hg 03/30/20 24 Blood pressure diastolic 00 mm Hg 024 Height 5 ft 9 in in 03/30/2024 Weight 239 lbs 03/30/2024 Encounters Encounter Location Date Provider Diagnosis [facility] [address] [place] [address] 03/30/2024 Sukhi Dias Dysphagia R13.10 ; Colon cancer screening Z12.11 and Chronic constipation K59.09 ASSESSMENTS Encounter Date Diagnosis Assessment Notes Treatment Notes Treatment Clinical Notes 03/30/2024 Dysphagia (ICD-10 - R13.10) 03/30/2024 Colon cancer screening (ICD-10 - Z12.11) 03/30/2024 Chronic constipation (ICD-10 - K59.09) Use 2 Metamucil fiber pills once or twice a day with a lot of water to help the constipation Use some daily Miralax powder to help the constipation PLAN OF TREATMENT Treatment Notes Assessment Notes Chronic constipation Use 2 Metamucil fiber pills once or twice a day with a lot of water to help the constipation Use some daily Miralax powder to help the constipation Future Test Test Name Order Date UPPER GI ENDOSCOPY BALLOOON DILATION OF ESOPH 03/30/2024 COLONOSCOPY 03/30/2024 Next Appt Details Provider Name:Sukhi Dias , 06/19/2024 12:20:00 PM, [address] [place] [address], [phone], Progress Notes * Examination Category Sub-Category Detail Notes General Examination GENERAL APPEARANCE: pleasant , well nourished, well developed, in no acute distress HEAD: EYES: sclera non-icteric EARS: NOSE: THROAT: NECK/THYROID: no cervical lymphade nopathy, neck supple HEART: S1, S2 normal CHEST: LUNGS: clear to auscultatio n bilaterally ABDOMEN: normal bowel sounds, no guarding or rigidity, no guarding or rigidity, no masses palpable, soft, nontender, nondistended NEUROLOGIC: alert and oriented SKIN: nonjaundiced, no spi loli angiomata EXTREMITIES: no edema PERIPHERAL PULSES: BACK: BREASTS: MUSCULOSKELETAL: MALE GENITOURINARY: LYMPH NODES: RECTAL EXAM: FEMALE GENITOURINARY: ORAL CAVITY: mucosa moist
--- OUTSIDE RECORDS SUMMARY | 2024-05-12 11:48 | XMS_ITS ---
Author Name [facility] [place] [facility] [place] [facility] [place] Address [address] [place] [address] Care Team Providers Care Gas Engine Mechanic Name Role Phone MITCH SALAS Primary Care [...] [facility] Dec 08, 2017 [id number] REGGIE MANN IE SPOUSE CAREM[place] PRESCRIPT ION [facility] May 10, 2012 [id number] [phone] REGGIE MANN IE SPOUSE [place] PRESCRIPT ION [facility] May 10, 2012 [id number] REGGIE MANN IE SPOUSE Selected Encounter This section includes the information on record at [place] for the Encounter. Date/Time Encounter Type Encounter Description Reason Provider Source Oct 12, 2023 10:00 AM POS AIRWAY PRESSURE FILTER SLEEP MEDICINE ICD-10-CM G47.30 Sleep apnea, unspecified SUNG WAYNE Encounter Template Text not used by [facility] Assessments - Encounter Diagnoses This section includes the primary and secondary diagnoses documented for the Encounter. Date/Time Primary/Secondary Diagnosis Diagnosis Name Provider Source Oct 12, 2023 10:22 AM PRIMARY Sleep apnea, unspecified SUNG GLOVER [place] [facility] Plan of Treatment: Future Appointments (+ 6 months) and Future Tests (+/- 45 days) The Plan of Treatment section includes future care activities for the patient from all [place] treatmentfacilities. This section includes future appointments and future orders which are active, pending or scheduled. Active, Pending, and Scheduled Orders This section includes a listing of several types of active, pending, and scheduled orders, including clinic medications orders, diagnostic test orders, procedure orders and consult orders; where the start date of the order is 45 days before the date of the Encounter or 45 days after the date of theEncounter. The data comes from all [place] treatment facilities. Test Date/Time Test Type Test Details Facility Name September 21, 2023 12:00 AM Laboratory - Chemi stry Order DEPLETED URANIUM PANEL DU KIT URINE SP [facility] Social History: Smoking Status (Most current) and Tobacco Use (All prior to encounter date) This section includes the most current, and the historical, smoking and tobacco- related health factors from the [place] facility where the Encounter took place. Current Smoking Status This section includes the most current smoking, or tobacco-related health factor, from the [place] facility where the Encounter took place. Date/Time Current Smoking Status Comment Maddi ity Jun 22, 2023 09:30 AM [place]-TOBACCO QUIT 15 YRS OR MORE [facility] Tobacco Use History This section includes a history of the smoking, or tobacco-related health factors, that were collected on or before the date of the Encounter. The data comes from the [place] facility where the Encounter took place. Date/Time Smoking Status/Tobacco Use Comment F acility Jun 22, 2023 09:30 AM [place]-TOBACCO QUIT 15 YRS OR MORE [facility] Apr 07, 2023 10:30 AM AH-BPR SMOKING DEP LOYMENT YES [facility] Jun 22, 2022 09:30 AM VA-TOBACCO FORMER USER [facility] Jun 22, 2022 09:30 AM [place]-TOBACCO QUIT 15 YRS OR MORE [facility] Feb 28, 2021 09:30 AM [facility] [place] [facility] Feb 28, 2021 09:30 AM VA-TOBACCO QUIT 15 YRS OR MORE [place] [facility] [facility] September 22, 2018 11:06 AM VA-TOBACCO FORMER USER [place] [facility] September 22, 2018 11:06 AM VA-TOBACCO QUIT 15 YRS OR [facility] Dec 22, 2005 09:44 AM QUIT TOBACCO USE > 7 YEARS AGO 10 [facility] A[facility] Feb 22, 2003 02:39 PM HISTORY OF SMOKING [facility] Feb 22, 2003 02:39 PM QUIT TOBACCO USE 1 -[facility] Encounter Notes: All associated encounter notes This section contains the clinical notes associated to the Encounter. Date/Time Encounter Note(s) Provider Source Oct 12, 2023 10:16 AM RESPIRATORY THERAP Y CONSULT: LOCAL TITLE: CONSULT REPORT/RESPIRATORY THERAPY STANDARD TITLE: RESPIRATORY THERAPY CONSULT DATE OF NOTE: OCT 12, 2023@10:16 ENTRY DATE: OCT 12, 2023@10:16:38 AUTHOR: SUNG WAYNE EXP COSIGNER: URGENCY: STATUS: COMPLETED diagnosed with sleep apnea seen in clinic regarding renewing APAP 7-20 cmH2O. Auto-CPAP prescription will be renewed for 1 year APAP @ 7-20 cmH2O. [place] had stopped use because he found the F20 mask confining. [place] did not bring CPAP device to visit. He was fit with F30-i full face mask medium cushion with new supplies. [place] was reminded that consistent use > 4 hours a night yield the best benefit. He was also cautioned regarding the dangers of untreated sleep apnea. Written cleaning, resupply schedule and contact information provided. He will be scheduled for a follow-up via self-alert system to renew his prescription in one year. Vet will be followed in clinic as needed as well as via the [employer] program. Data check 1 and 4 weeks. /chandu/ SUNG WAYNE RESPIRATORY THERAPIST Signed: 10/12/2023 10:23 SUNG WAYNE [place] [facility]
--- OUTSIDE RECORDS SUMMARY | 2024-05-12 11:48 | XMS_ITS ---
Author Name [facility] [place] [facility] [place] Address [address] [place] [address] Care Team Providers Care Console Operator Name Role Phone MITCH SALAS Primary Care [...] (PPO) [facility] Dec 08, 2017 [id number] REGGIE MANN IE SPOUSE CAREMARK PRESCRIPT ION [facility] May 10, 2012 [id number] [phone] REGGIE MANN IE SPOUSE [place] PRESCRIPT ION [facility] May 10, 2012 [id number] REGGIE MANN IE SPOUSE Selected Encounter This section includes the information on record at [place] for the Encounter. Date/Time Encounter Type Encounter Description Reason Provider Source Dec 13, 2023 03:42 PM COLLJ & INTERPJ DATA EA 30 D TELEPHONE/MEDICIN E ICD-10-CM G47.30 Sleep apnea, unspecified YUKO RHODES Encounter Template Text not used by VA Assessments - Encounter Diagnoses This section includes the primary and secondary diagnoses documented for the Encounter. Date/Time Primary/Secondary Diagnosis Diagnosis Name Provider Source Dec 13, 2023 03:42 PM PRIMARY Sleep apnea, unspecified YUKO RHODES [facility] Social History: Smoking Status (Most current) and Tobacco Use (All prior to encounter date) This section includes the most current, and the historical, smoking and tobacco- related health factors from the [place] facility where the Encounter took place. Current Smoking Status This section includes the most current smoking, or tobacco-related health factor, from the [place] facility where the Encounter took place. Date/Time Current Smoking Status Comment Facil ity Jun 22, 2023 09:30 AM VA-TOBACCO FOR[facility]ER [facility] Tobacco Use History This section includes a history of the smoking, or tobacco-related health factors, that were collected on or before the date of the Encounter. The data comes from the [place] facility where the Encounter took place. Date/Time Smoking Status/Tobacco Use Comment F acility Jun 22, 2023 09:30 AM VA-TOBACCO QUIT 15 YRS OR MORE [place] [facility] Apr 07, 2023 10:30 AM -BPR SMOKING DEP LOYMENT YES [place] [facility] [facility] Jun 22, 2022 09:30 AM VA-TOBACCO FORMER USER [place] [facility] Jun 22, 2022 09:30 AM VA-TOBACCO QUIT 15 YRS OR MORE [place] [facility] Feb 28, 2021 09:30 AM VA-TOBACCO FORMER USER [place] [facility] Feb 28, 2021 09:30 AM VA-TOBACCO QUIT 15 YRS OR MORE [place] [facility] September 22, 2018 11:06 AM VA-TOBACCO FORMER USER [place] [facility] September 22, 2018 11:06 AM VA-TOBACCO QUIT 15 YRS OR MORE [place] [facility] [facility] Dec 22, 2005 09:44 AM QUIT TOBACCO USE > 7 YEARS AGO 10 YEARS AGO [place] [facility] Feb 22, 2003 02:39 PM HISTORY OF SMOKING [place] [facility] Feb 22, 2003 02:39 PM QUIT TOBACCO USE 1 -7 YEARS AGO [place] [facility] Encounter Notes: All associated encounter notes This section contains the clinical notes associated to the Encounter. Date/Time Encounter Note(s) Provider Source Dec 13, 2023 03:43 PM SLEEP MEDICINE NOT E: LOCAL TITLE: CPAP CLINIC NOTE STANDARD TITLE: SLEEP MEDICINE NOTE DATE OF NOTE: DEC 13, 2023@15:43 ENTRY DATE: DEC 13, 2023@15:43:07 AUTHOR: YUKO RHODES COSIGNER: URGENCY: STATUS: COMPLETED Attempted to contact [place], dx with sleep apnea, for cpap compliance follow up and left message for him to call back. Data for the last 60 days reviewed and it appears he is not using his cpap in the last month. [employer]VIEW COMPLIANCE PROGRAM Patient APAP compliance data reviewed via the Facebook program for the last 60 days. SETTINGS: Apap 7 - [id number] TOTAL DAYS USED 15 DAYS USED > 4hrs 0 AVG USAGE 1:50hours AVG PRESSURE [id number] LEAK 46 AHI: 10 Central 2.2 Obstructive 2.7 unknown 2.6 These results indicate [place] is not compliant. If pt has any questions or concerns regarding Apap, he/she can contact Respiratory at [phone] extension [phone]. /es/ YUKO RHODES CRT RESPIRATORY THERAPIST Signed: 12/13/2023 15:47 YUKO RHODES
--- OUTSIDE RECORDS SUMMARY | 2024-05-12 11:48 | XMS_ITS ---
Author Name [facility] [place] Organization [place] Address [address] [place] [address] Care Team Providers Care Lining Vamper Name Role Phone MITCH SALAS Primary Care [...] (BLUE CARD) PREFERRED PROVIDER ORGANIZAT ION (PPO) [facility] Dec 08, 2017 [id number] REGGIE MANN IE SPOUSE [place] PRESCRIPT ION [facility] May 10, 2012 [id number] [phone] REGGIE MANN IE SPOUSE [place] PRESCRIPT ION [facility] May 10, 2012 [id number] [phone] REGGIE MANN IE SPOUSE Selected Encounter This section includes the information on record at [place] for the Encounter. Date/Time Encounter Type Encounter Description Reason Pro vider Source Mar 15, 2024 09:58 AM Outpatient Encounter OPTOMETRY IHE Encounter Template Text not used by [...] 20 appointments. The data comes from all [place] treatment facilities. Appointment Date/Time Appointment Type Appointme nt Facility Name Jun 21, 2024 10:00 AM [facility] Active, Pending, and Scheduled Orders This section includes a listing of several types of active, pending, and scheduled orders, including clinic medications orders, diagnostic test orders, procedure orders and consult orders; where the start date of the order is 45 days before the date of the Encounter or 45 days after the date of theEncounter. The data comes from all [place] treatment facilities. Test Date/Time Test Type Test Details Facility Name Feb 29, 2024 12:00 AM Laboratory - Chemi stry Order OCCULT BLOOD FIT X1 SCREEN (MFP ONLY) ST[facility]EC[facility] Social History: Smoking Status (Most current) and Tobacco Use (All prior to encounter date) This section includes the most current, and the historical, smoking and tobacco- related health factors from the [place] facility where the Encounter took place. Current Smoking Status This section includes the most current smoking, or tobacco-related health factor, from the [place] facility where the Encounter took place. Date/Time Current Smoking Status Comment Facil ity Jun 22, 2023 09:30 AM [place]-TOBACCO [facility] Tobacco Use History This section includes a history of the smoking, or tobacco-related health factors, that were collected on or before the date of the Encounter. The data comes from the [place] facility where the Encounter took place. Date/Time Smoking Status/Tobacco Use Comment F acility Jun 22, 2023 09:30 AM VA-TOBACCO QUIT 15 YRS OR MORE [place] [facility] [place] [facility] Apr 07, 2023 10:30 AM AH-BPR SMOKING DEP LOYMENT YES [place] [facility] [place] [facility] Jun 22, 2022 09:30 AM VA-TOBACCO FORMER USER [place] [facility] [place] [facility] Jun 22, 2022 09:30 AM NE-TOBACCO QUIT 15 YRS OR MORE [place] [facility] [place] [facility] Feb 28, 2021 09:30 AM [facility]AC[facility] Feb 28, 2021 09:30 AM VA-TOBACCO QUIT 15 YRS OR MORE [place] [facility] [place] [facility] September 22, 2018 11:06 AM VA-TOBACCO FORMER USER [place] [facility] [place] [facility] September 22, 2018 11:06 AM VA-TOBACCO QUIT 15 YRS OR MORE [facility] Dec 22, 2005 09:44 AM QUIT TOBACCO USE > 7 YEARS AGO 10 [facility] A[facility] Feb 22, 2003 02:39 PM HISTORY OF SMO[facility] Feb 22, 2003 02:39 PM QUIT TOBACCO USE 1 -7 YEARS AGO [facility] Encounter Notes: All associated encounter notes This section contains the clinical notes associated to the Encounter. Date/Time Encounter Note(s) Provider Source Mar 15, 2024 09:59 AM ADMINISTRATIVE NOT E: LOCAL TITLE: ADMINISTRATIVE RECALL NOTE STANDARD TITLE: ADMINISTRATIVE NOTE DATE OF NOTE: MAR 15, 2024@09:59 ENTRY DATE: MAR 15, 2024@09:59:50 AUTHOR: FLORY VINCENT EXP COSIGNER: URGENCY: STATUS: COMPLETED RTC orders: Unable to contact patient: Attempts to contact: 1st attempt: Left voicemail 2nd attempt: Letter mailedDisposition onMar 3rd attempt: 4th attempt: /breana VINCENT ADVANCED BROWNFIELD REDEVELOPMENT SITE MANAGER Signed: 03/15/2024 10:00 FLORY VINCENT [facility] Mar 15, 2024 09:58 AM TELEPHONE ENCOUNTE R NOTE: LOCAL TITLE: TELEPHONE NOTE/SPECIALTY CLINIC STANDARD TITLE: TELEPHONE ENCOUNTER NOTE DATE OF NOTE: MAR 15, 2024@09:58 ENTRY DATE: MAR 15, 2024@09:58:59 AUTHOR: FLORY VINCENT EXP COSIGNER: URGENCY: STATUS: COMPLETED Called and left message on voicemail. Patients appointment with optometry on 05/23/2023 Needs to be rescheduled with a PID of 05/19/2024 Letter mailed [phone] Ext: [phone] /breana VINCENT ADVANCED BROWNFIELD REDEVELOPMENT SITE MANAGER Signed: 03/15/2024 09:59 FLORY VINCENT [facility]
== END 2024-05-12 11:20 | disposition home or self-care (01) ==
PROVIDERS: PCP Internal Medicine; Visit Provider Internal Medicine
DX: M19.211 Secondary osteoarthritis, right shoulder (principal); R73.01 Impaired fasting glucose; J45.909 Unspecified asthma, uncomplicated; G47.33 Obstructive sleep apnea (adult) (pediatric); K21.9 Gastro-esophageal reflux disease without esophagitis; R79.89 Other specified abnormal findings of blood chemistry; E55.9 Vitamin D deficiency, unspecified; E66.9 Obesity, unspecified; Z68.35 Body mass index [BMI] 35.0-35.9, adult; E78.00 Pure hypercholesterolemia, unspecified; K59.00 Constipation, unspecified; R68.82 Decreased libido

== ENCOUNTER → 2024-05-12 10:23 | Outpatient (BNVA) | payer BC, SELFPAY | PROVIDERS: PCP Internal Medicine; Visit Provider Internal Medicine | DX: M19.211 Secondary osteoarthritis, right shoulder (principal); R73.01 Impaired fasting glucose; J45.909 Unspecified asthma, uncomplicated; G47.33 Obstructive sleep apnea (adult) (pediatric); K21.9 Gastro-esophageal reflux disease without esophagitis; R79.89 Other specified abnormal findings of blood chemistry; E78.00 Pure hypercholesterolemia, unspecified; K59.00 Constipation, unspecified; R68.82 Decreased libido; E66.9 Obesity, unspecified; Z68.35 Body mass index [BMI] 35.0-35.9, adult; Z79.899 Other long term (current) drug therapy; Z99.89 Dependence on other enabling machines and devices | CPT/HCPCS: 96127 ==

== ENCOUNTER 2024-07-18 08:54 | Outpatient (AMB) | payer BC, SELFPAY ==
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
[2024-07-18 09:09] VITALS: BMI 34.0
--- OUTSIDE RECORDS SUMMARY | 2024-07-18 09:47 | XMS_ITS ---
Author Name [facility] [place] Organization [facility] [place] [facility] [place] Address [address] [place] [address] Care Team Providers Care Division Operations Manager Name Role Phone MITCH SALAS Primary Care [...] Aldridge's Name Patient's Relationship to Policy Aldridge KAIMARK PRESCRIPT ION [facility] May 10, 2012 [id number] [phone] JOHNATHANSHIRLEYBrittany IE SPOUSE Selected Encounter This section includes the information on record at [place] for the Encounter. Date/Time Encounter Type Encounter Description Reason Provider Source Jul 04, 2024 11:11 AM FIT SPECTACLES MONOFOCAL OPTOMETRY ICD-10-CM Z46.0 Encounter for fit/adjst of spectacles and contact lenses LARRY ROSA Milena Encounter Template Text not used by [place] Assessments - Encounter Diagnoses This section includes the primary and secondary diagnoses documented for the Encounter. Date/Time Primary/Secondary Diagnosis Diagnosis Name Provider Source Jul 04, 2024 11:11 AM PRIMARY Encounter for fit/adjst of spectacles and contact lenses VILMA ENG [facility] [place] [facility] Plan of Treatment: Future Appointments (+ 6 months) and Future Tests (+/- 45 days) The Plan of Treatment section includes future care activities for the patient [facility] [place] [facility]. This section includes future appointments and future orders which are active, pending or scheduled. Future Appointments This section includes appointments that were scheduled to occur 6 months from the date of the Encounter, up to a maximum of 20 appointments. The data comes from all [place] treatment facilities. Appointment Date/Time Appointment Type Appointme nt Facility Name Dec 25, 2024 10:00 AM [facility] Active, Pending, and Scheduled Orders This section includes a listing of several types of active, pending, and scheduled orders, including clinic medications orders, diagnostic test orders, procedure orders and consult orders; where the start date of the order is 45 days before the date of the Encounter or 45 days after the date of theEncounter. The data comes from all [place] treatment facilities. Test Date/Time Test Type Test Details Facility Name Jun 21, 2024 10:59 AM Consult Order PSYCHOTHER SHINE ZAPATA/CORA OUTPT Cons Certified Surgical Technologist's [facility] Social History: Smoking Status (Most current) and Tobacco Use (All prior to encounter date) This section includes the most current, and the historical, smoking and tobacco- related health factors from the [place] facility where the Encounter took place. Current Smoking Status This section includes the most current smoking, or tobacco-related health factor, from the [place] facility where the Encounter took place. Date/Time Current Smoking Status Comment Facil ity Jun 21, 2024 10:00 AM [place]-TOBACCO NEVER U SED CIGARETTES [facility] Tobacco Use History This section includes a history of the smoking, or tobacco-related health factors, that were collected on or before the date of the Encounter. The data comes from the [place] facility where the Encounter took place. Date/Time Smoking Status/Tobacco Use Comment F acility Jun 21, 2024 10:00 AM [place]-TOBACCO NEVER U SED OTHER TYPE [place] [facility] [place] [facility] Jun 22, 2023 09:30 AM [place]-TOBACCO FORMER USER [place] [facility] [place] [facility] Jun 22, 2023 09:30 AM VA-TOBACCO QUIT 15 YRS OR MORE [facility] Apr 07, 2023 10:30 AM -BPR SMOKING DEP LOYMENT YES [place] [facility] [place] [facility] Jun 22, 2022 09:30 AM VA-TOBACCO FORMER USER [place] [facility] [place] [facility] Jun 22, 2022 09:30 AM VA-TOBACCO QUIT 15 YRS OR MORE [facility] [place] [facility] Feb 28, 2021 09:30 AM VA-TOBACCO FORMER USER [facility] [place] [facility] Feb 28, 2021 09:30 AM VA-TOBACCO QUIT 15 YRS OR MORE [facility] [place] [facility] September 22, 2018 11:06 AM VA-TOBACCO FORMER USER [facility] [place] [facility] September 22, 2018 11:06 AM VA-TOBACCO QUIT 15 YRS OR MORE [facility] [place] [facility] Dec 22, 2005 09:44 AM QUIT TOBACCO USE > 7 YEARS AGO 10 YEARS AGO [facility] [place] [facility] Feb 22, 2003 02:39 PM HISTORY OF SMOKING [facility] [place] [facility] Feb 22, 2003 02:39 PM QUIT TOBACCO USE 1 -7 YEARS AGO [facility] [place] [facility] Encounter Notes: All associated encounter notes This section contains the clinical notes associated to the Encounter. Date/Time Encounter Note(s) Provider Source Jul 04, 2024 11:11 AM OPTOMETRY NOTE: LOCAL TITLE: OPTOMETRY NOTE STANDARD TITLE: OPTOMETRY NOTE DATE OF NOTE: JUL 04, 2024@11:11 ENTRY DATE: JUL 04, 2024@11:11:34 AUTHOR: SKYLER MCCARTNEY EXP COSIGNER: URGENCY: STATUS: COMPLETED OPTOMETRY NOTE Has ADDENDA The quote provided below is for informational purposes only. Please verify prior to the creation of a purchase order. TRAVSAMY MANN [id number] RX INFORMATION OD +0.50 0.00 X Add:0.00 Pzm:0.00 Dir: Prz2:0.00 Dir2: OS +0.25 0.00 X Add:0.00 Pzm:0.00 Dir: Prz2:0.00 Dir2: FITTING INFORMATION FPD: NPD: Wise:R:32 L:33 SEG HT:R: L: Tint:None Shade:None [place] Billable Items FRAME: 1713 BLACK CRYSTAL 56-18-145 Right Lens: POLY SINGLE VISION PHOTOCHROMATIC GOLDEN 1.586 POLY Left Lens: POLY SINGLE VISION PHOTOCHROMATIC GOLDEN 1.586 POLY KLEAR ANTI-REFLECTIVE COATING CLIN items [employer] - AR Coating 0001 - Single Vision - Glass Plastic Poly 0005 - Transition ----- The quote provided below is for informational purposes only. Please verify prior to the creation of a purchase order. [facility] [id number] RX INFORMATION OD +2.00 0.00 X Add:0.00 Pzm:0.00 Dir: Prz2:0.00 Dir2: OS +1.75 0.00 X Add:0.00 Pzm:0.00 Dir: Prz2:0.00 Dir2: FITTING INFORMATION FPD: NPD: Wise:R:29.5 L:30.5 SEG HT:R: L: Tint:None Shade:None VA Billable Items FRAME: 1713 BLACK CRYSTAL 56-18-145 Right Lens: POLY SINGLE VISION 1.586 POLY Left Lens: POLY SINGLE VISION 1.586 POLY CLIN items 0001 - Single Vision - Glass Plastic Poly /chandu/ SKYLER MCCARTNEY TAPING FOREMAN Signed: 07/04/2024 11:11 Receipt Acknowledged By: 07/05/2024 09:30 /breana ENG OPTOMETRY TECH 07/05/2024 ADDENDUM STATUS: COMPLETED PDS Command And Control Officer fit patient with 2 pair(s) of SV eyeglasses on 07/04/2024 as directed by provider. Optometry Health Supervisor [employer] entered consult(s) for order on behalf of provider. /chandu/ VILMA ENG OPTOMETRY TECH Signed: 07/05/2024 09:33 SKYLER MCCARTNEY [facility]
--- OUTSIDE RECORDS SUMMARY | 2024-07-18 09:47 | XMS_ITS | Encounter Summary ---
Author Name [facility] [place] [facility] [place] [facility] [place] [facility] [place] Address [address] [place] [address] Care Team Providers Care Dye Automation Operator Name Role Phone JOSUEMITCH Primary Care Provider Unavailabl e Insurance Providers: [...] Aldridge's Name Patient's Relationship to Policy Aldridge CAREMARK PRESCRIPT ION [facility] May 10, 2012 [id number] REGGIE MANN IE SPOUSE Selected Encounter This section includes the information on record at [place] for the Encounter. Date/Time Encounter Type Encounter Description Reason Pro vider Source IHE Encounter Template Text not used by [place] Social History: Smoking Status (Most current) and Tobacco Use (All prior to encounter date) This section includes the most current, and the historical, smoking and tobacco- related health factors from the [place] facility where the Encounter took place. Current Smoking Status This section includes the most current smoking, or tobacco-related health factor, from the [place] facility where the Encounter took place. Date/Time Current Smoking Status Comment Maddi jacques Apr 07, 2023 10:30 AM AH-BPR SMOKING DEP LOYMENT YES [facility] [place] [facility]
--- OUTSIDE RECORDS SUMMARY | 2024-07-18 09:47 | XMS_ITS ---
Author Name [facility] [place] Organization [facility] [place] Address [address] [place] [address] Care Team Providers Care Pricing Supervisor Name Role Phone JOSUEMITCH BROWN Primary Care Provider Unavailabl e Insurance Providers: [...] Relationship to Policy Aldridge GERARDO [facility] May 10, 2012 [id number] [phone] 1 JOHNATHANREGGIE IE SPOUSE Selected Encounter This section includes the information on record at [place] for the Encounter. Date/Time Encounter Type Encounter Description Reason Pro vider Source Jun 21, 2024 12:00 AM Outpatient Encounter EVENT (HISTORICAL) IHE Encounter Template Text not used by [place] Plan of Treatment: Future Appointments (+ 6 [...] 20 appointments. The data comes from all [place] treatment facilities. Appointment Date/Time Appointment Type Appointme nt Facility Name Jul 04, 2024 10:00 AM [facility] [place] [facility] Active, Pending, and Scheduled Orders This section includes a listing of several types of active, pending, and scheduled orders, including clinic medications orders, diagnostic test orders, procedure orders and consult orders; where the start date of the order is 45 days before the date of the Encounter or 45 days after the date of theEncounter. The data comes from all [place] treatment facilities. Test Date/Time Test Type Test Details Facility Name Jun 21, 2024 10:59 AM Consult Order PSYCHOTHER SHINE [place]APATA/CORA OUTPT Cons Wastewater Analyst's [facility] Vital Signs: All taken on the encounter date This section contains inpatient and outpatient Vital Signs collected on the date of the Encounter. Date/Time Temperature Pulse Blood Pressure Respiratory Rate SP02 Pain Height Weight Body Mass Index Source Jun 21, 2024 10:28 AM 97.9 88 123/72 16 96 7 232 34 [facility] Social History: Smoking Status (Most current) and Tobacco Use (All prior to encounter date) This section includes the most current, and the historical, smoking and tobacco- related health factors from the [place] facility where the Encounter took place. Current Smoking Status This section includes the most current smoking, or tobacco-related health factor, from the [place] facility where the Encounter took place. Date/Time Current Smoking Status Comment Facil ity Jun 21, 2024 10:00 AM VA-TOBACCO NEVER U SED CIGARETTES [facility] Tobacco Use History This section includes a history of the smoking, or tobacco-related health factors, that were collected on or before the date of the Encounter. The data comes from the [place] facility where the Encounter took place. Date/Time Smoking Status/Tobacco Use Comment F acility Jun 21, 2024 10:00 AM VA-TOBACCO NEVER U SED OTHER TYPE [place] [facility] [place] [facility] Jun 22, 2023 09:30 AM VA-TOBACCO FORMER USER [place] [facility] [place] [facility] Jun 22, 2023 09:30 AM VA-TOBACCO QUIT 15 YRS OR MORE [place] [facility] Apr 07, 2023 10:30 AM AH-BPR SMOKING DEP LOYMENT [facility] [place] [facility] Jun 22, 2022 09:30 AM VA-TOBACCO FORMER USER [place] [facility] [place] [facility] Jun 22, 2022 09:30 AM VA-TOBACCO QUIT 15 YRS OR MORE [place] [facility] [place] [facility] Feb 28, 2021 09:30 AM VA-TOBACCO FORMER USER [place] [facility] [place] [facility] Feb 28, 2021 09:30 AM VA-TOBACCO QUIT 15 YRS OR MORE [place] [facility] [place] [facility] September 22, 2018 11:06 AM VA-TOBACCO FORMER USER [place] [facility] [place] [facility] September 22, 2018 11:06 AM VA-TOBACCO QUIT 15 YRS OR MORE [place] [facility] [place] [facility] Dec 22, 2005 09:44 AM QUIT TOBACCO USE > 7 YEARS AGO 10 YEARS AGO [place] [facility] [place] [facility] Feb 22, 2003 02:39 PM HISTORY OF SMOKING [place] [facility] [place] [facility] Feb 22, 2003 02:39 PM QUIT TOBACCO USE 1 -7 YEARS AGO [facility] [place] [facility]
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
--- OUTSIDE RECORDS SUMMARY | 2024-07-18 09:48 | XMS_ITS | Encounter Summary ---
Author Name [facility] [place] [facility] [place] Organization [facility] [place] Address [address] [place] [address] Care Team Providers Care Supervisor Cd Area Name Role Phone MITCH SALAS Primary Care [...] Name Patient's Relationship to Policy Aldridge GERARDO FRITZ [facility] May [birth year], 2012 [id number] JOHNATHANREGGIE JOHNSON SPOUSE Selected Encounter This section includes the information on record at [place] for the Encounter. Date/Time Encounter Type Encounter Description Reason Provider Source Jun 22, 2024 09:31 AM [facility] DIG ASSMT&MGMT 5-10 CLINICAL PHARMACY ICD-10-CM N52.9 Male erectile dysfunction, unspecified GDULA,RUSLAN A IHE Encounter Template Text not used by [place] Assessments - Encounter Diagnoses This section includes the primary and secondary diagnoses documented for the Encounter. Date/Time Primary/Secondary Diagnosis Diagnosis Name Provider Source Jun 22, 2024 09:34 AM PRIMARY Male erectile dysfunction, unspecified GDULA,RUSLAN A [facility] Plan of Treatment: Future Appointments (+ 6 months) and Future Tests (+/- 45 days) The Plan of Treatment section includes future care activities for the patient from all [place] [facility]. This section includes future appointments and future orders which are active, pending or scheduled. Future Appointments This section includes appointments that were scheduled to occur 6 months from the date of the Encounter, up to a maximum of 20 appointments. The data comes from all [place] treatment facilities. Appointment Date/Time Appointment Type Appointme nt Facility Name Jul 04, 2024 10:00 AM [facility] Active, Pending, and Scheduled Orders This section [...] 2024 10:59 AM Consult Order PSYCHOTHER SHINE ZAPATA/PIETROM OUTPT Cons Crushing Foreman's Choice [facility] Social History: Smoking Status (Most current) [...] Facil ity Jun 21, 2024 10:00 AM [place]-TOBACCO NEVER U SED CIGARETTES [facility] Tobacco Use History This section includes a history of the smoking, or tobacco-related health factors, that were collected on or before the date of the Encounter. The data comes from the [place] facility where the Encounter took place. Date/Time Smoking Status/Tobacco Use Comment F acility Jun 21, 2024 10:00 AM VA-TOBACCO NEVER U SED OTHER TYPE [facility] [place] [facility] Jun 22, 2023 09:30 AM VA-TOBACCO FORMER USER [facility] [place] [facility] Jun 22, 2023 09:30 AM VA-TOBACCO QUIT 15 YRS OR MORE [facility] Apr 07, 2023 10:30 AM -BPR SMOKING DEP LOYMENT YES [facility] [place] [facility] Jun 22, 2022 09:30 AM VA-TOBACCO FORMER USER [facility] [place] [facility] Jun 22, 2022 09:30 AM VA-TOBACCO QUIT 15 YRS OR MORE [facility] [place] [facility] Feb 28, 2021 09:30 AM VA-TOBACCO FORMER USER [facility] [place] [facility] Feb 28, 2021 09:30 AM VA-TOBACCO QUIT 15 YRS OR MORE [place] [facility] [place] [facility] September 22, 2018 11:06 AM VA-TOBACCO FORMER USER [facility] [place] [facility] September 22, 2018 11:06 AM VA-TOBACCO QUIT 15 YRS OR MORE [place] [facility] [place] [facility] Dec 22, 2005 09:44 AM QUIT TOBACCO USE > 7 YEARS AGO [facility] Feb 22, 2003 02:39 PM HISTORY OF [facility]MO[facility] Feb 22, 2003 02:39 PM QUIT TOBACCO USE 1 -[facility] Encounter Notes: All associated encounter notes This section contains the clinical notes associated to the Encounter. Date/Time Encounter Note(s) Provider Source Jun 22, 2024 09:31 AM PHARMACY CONSULT: LOCAL TITLE: CONSULT REPORT/PRIOR [facility] STANDARD TITLE: PHARMACY CONSULT DATE OF NOTE: JUN 22, 2024@09:31 ENTRY DATE: JUN 22, 2024@09:31:43 AUTHOR: RUSLAN BRADY EXP COSIGNER: URGENCY: STATUS: COMPLETED The medical record has been reviewed with regard to this restricted drug request. Medication requested: TADALAFIL 5MG TAB Medication indication: DM Medical history relevant to this request: Pt has trialed and dailed sildenafil 100 mg prn. The request is approved - A documented therapeutic failure of the preferred formulary alternative(s) exists Comment: sildenafil 100 mg Time spent: 5mins /chandu/ RUSLAN BRADY PHARMD,BCPS CLINICAL PHARMACY PRACTITIONER Signed: 06/22/2024 09:34 RUSLAN BRADY [facility]
--- OUTSIDE RECORDS SUMMARY | 2024-07-18 09:48 | XMS_ITS ---
Author Organization [facility] Address [address] [place] [id number] Care Team Providers Care Rehabilitation Caseworker Name Role Phone Farshad HIGH David Primary Care Provider UnaSukhi Pena [phone] REASON FOR VISIT rescheduled procedure Encounters Encounter Location Date Provider Diagnosis [facility] [address] [facility] [address] [place] [phone] 06/08/2024 Sukhi Dias Plan Of Treatment Next Appt Details Provider Name:Sukhi Dias , 09/20/2024 10:40:00 AM, [address] [place] [address] , [place], [place], [phone], Progress Notes * DOMONIQUE MANNINDOB:1975 ( 48 yo M)Acc No.[id number]:06/08/2024 Patient:?TRAV MANN :1975???Age:48 Y???Sex:Male Address:[address] [place] [id number] * true * Date:? Generated for Printi trino/Blas/eTransmitting on:?07/18/2024 09:48 AM EDT
--- OUTSIDE RECORDS SUMMARY | 2024-07-18 09:48 | XMS_ITS | Clinical Summary ---
Author Organization [facility] Address [address] [place] [address] Care Team Providers Care Interface Developer Name Role Phone Ney Antunez MD Primary Care Provider Allergies Active Allergy Reactions Criticality Noted Date Comments Factor Ix Human Recombinant, Threonine 148 04/20/2023 Medications famotidine (PEPCID) 20 mg tablet Take 1 Tablet by mouth 2 times daily. Active famotidine (PEPCID) 20 mg tablet Take 1 Tablet by mouth 2 times daily as needed for Heartburn. 4 Active pantoprazole (PROTONIX) 40 mg EC tablet Take 1 Tablet by mouth daily. Take in am on empty stomach, wait 30 mins and then eat to activate the emdication Active sildenafiL (VIAGRA) 100 mg tablet Take 1 Tablet by mouth as needed. Active Medical History Medical History Date Comments Esophageal reflux DX:Esophageal reflux Choking DX:Choking Dysphagia DX:Dysphagia Social History Tobacco Use Types Packs/Day Years Used Date Smoking Tobacco: Never Assessed Sex and Gender Information Value Date Recorded Sex Assigned at Not on file Legal Sex Male 2:32 PM EST Gender Identity Not on file Sexual Orientation Not on file Obstetrics History Last Filed Vital Signs Vital Sign Reading Time Taken Comments Blood Pressure 104/86 05/18/2023 11:38 AM EST Pulse 96 05/18/2023 11:38 AM EST Temperature - - Respiratory Rate - - Oxygen Saturation - - Inhaled Oxygen Concentration - - Weight 105 kg (231 lb) 05/18/2023 11:38 AM EST Height 175.3 cm (5' 9 ) 05/18/2023 11:38 AM EST Body Mass Index 34.11 05/18/2023 11:38 AM EST Plan of Treatment Health Maintenance Due Date Last Done Comments DTaP,Tdap,and Td Vaccines (1 - Tdap) 12/23/1994 Hepatitis B Vaccines (1 of 3 - 19+ 3-dose series) 12/23/1994 Cholesterol Screening (Lipid Panel) 04/22/2022 Colorectal Cancer Screening: Colonoscopy 04/22/2022 Depression Screening 04/22/2022 HIV Screening 04/22/2022 Hepatitis C Screening 04/22/2022 Social Influencers of Health Screening 04/22/2022 COVID-19 Vaccine ( - 2023-2 5 season) 2024 Influenza Vaccine (#1) 2024 HIB Vaccines Aged Out No longer eligi ble based on patient's age to complete this topic HPV Vaccines Aged Out No longer eligi ble based on patient's age to complete this topic Hepatitis A Vaccines Aged Out No long er eligible based on patient's age to complete this topic IPV Vaccines Aged Out No longer eligi ble based on patient's age to complete this topic MMR Vaccines Aged Out No longer eligi ble based on patient's age to complete this topic Meningococcal ACWY Vaccine Aged Out N o longer eligible based on patient's age to complete this topic Meningococcal B Vacine Aged Out No lo nger eligible based on patient's age to complete this topic Pneumococcal Vaccine: Pediat rics (0 to 5 Years) and At-Risk Patients (6 to 64 Years) Aged Out No longer eligible b ased on patient's age to complete this topic RSV Immunization Patients Un loli 20 months Aged Out No longer eligible b ased on patient's age to complete this topic Varicella Vaccines Aged Out No longer eligible based on patient's age to complete this topic Care Teams Interface Developer Relationship Specialty Start Date End Date Ney Antunez MD [address] [place] [address] PCP - General Internal Medicine 12/18/21
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
--- OUTSIDE RECORDS SUMMARY | 2024-07-18 09:48 | XMS_ITS ---
Author Organization [facility] Address [address] [place] [address] Care Team Providers Care Cushion Assembler Name Role Phone David Yen MD Primary Care Provider Sukhi Ramos [phone] REASON FOR VISIT screening,dysphagia Encounters Encounter Location Date Provider Diagnosis [facility] Outpatient [address] [place] [phone] 06/19/2024 Sukhi Dias Plan Of Treatment Next Appt Details Provider Name:Sukhi Dias , 09/20/2024 10:40:00 AM, [address] [place] [address] , [place], [place], [phone], Progress Notes * DOMONIQUE MANNINDOB:1975 ( 48 yo M)Acc No.[id number]:06/19/2024 EGD and COL/MAC Patient:?TRAV MANN Provider:?Sukhi Dias MD :1975???Age:48 Y???Sex:Male Mo e:06/19/2024 Address:[address] [place] [address] [place], [place] Pcp:David Yen MD Subjective: * Chief Complaints: * ???1. Screening,dysphagia. * Medical History:? Objective: * Vitals:? Assessment: Plan: * Treatment: * * The named appointment provid er may or may not be the originator of this progress note, and it is not deemed complete until electronically signed by the appointment provider. Sign off status: Pending * Provider:?Sukhi Dias MD Date:? 025 Generated for Annette jameson/Blas/Ana on:?07/18/2024 09:48 AM EDT
--- OUTSIDE RECORDS SUMMARY | 2024-07-18 09:48 | XMS_ITS ---
Author Organization [facility] Address [address] [place] [address] Care Team Providers Care Patient Accounts Coordinator Name Role Phone Farshad HIGH David Primary Care Provider Sukhi Ramos [phone] REASON FOR VISIT please lock office note from 03-30-24 Encounters Encounter Location Date Provider Diagnosis [facility] [address] [place] [address] 04/19/2024 Sukhi Dias Plan Of Treatment Next Appt Details Provider Name:Sukhi Dias , 09/20/2024 10:40:00 AM, [address] [place] [address] , [place], [place], [phone], Progress Notes * DOMONIQUE MANNINDOB:1975 ( 48 yo M)Acc No.[id number]:04/19/2024 Patient:?TRAV MANN :1975???Age:48 Y???Sex:Male Address:[address] [place] [address] * true * Date:? Generated for Annette jameson/Blas/eTransmitting on:?07/18/2024 09:47 AM EDT
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
== END 2024-07-18 09:44 | disposition home or self-care (01) ==
LOC: HO.HOS 08:55
PROVIDERS: PCP Internal Medicine; Visit Provider Orthopaedic Surgery
DX: M25.311 Other instability, right shoulder (principal); M75.41 Impingement syndrome of right shoulder
CPT/HCPCS: 99203

== ENCOUNTER → 2024-07-18 08:54 | Outpatient (BNVA) | payer BC, SELFPAY | PROVIDERS: PCP Internal Medicine; Visit Provider Orthopaedic Surgery ==

== ENCOUNTER 2024-09-20 09:24 | Day surgery (SDC) | payer BC, SELFPAY ==
[2024-09-18 10:02] VITALS: BMI 35.3
--- NOTE | 2024-09-19 09:33 | HO.ANESPROP2 ---
Documented by User: Lynsey Pina NP 09/19/24 09:34 HPI - Anesthesia Eval Consult details Narrative: 48yo M for Upper Endoscopy and Colonoscopy [facility] Active Problems Active Problems: All Active Problems Rotator cuff insufficiency of right shoulder (Acute) Low libido (Acute) Urinary frequency (Acute) Constipation (Acute) Right shoulder pain (Acute) Annual physical exam (Acute) Lesion of left eyelid (Acute) Dysphagia (Acute) Reactive airway disease (Acute) Exertional dyspnea (Acute) Colon cancer screening (Acute) Elevated LFTs (Acute) Dyspnea (Acute) Secondary osteoarthritis, right shoulder (Acute) ZACH (obstructive sleep apnea) (Acute) Allergic asthma (Acute) Obesity (BMI 30-39.9) (Acute) Vitamin D deficiency (Acute) Impaired fasting glucose (Acute) Pure hypercholesterolemia (Acute) Obstructive sleep apnea (Acute) GERD without esophagitis (Acute) Past Medical History Medical History Secondary osteoarthritis, right shoulder ZACH (obstructive sleep apnea) Allergic asthma Obesity (BMI 30-39.9) Vitamin D deficiency Impaired fasting glucose Pure hypercholesterolemia GERD without esophagitis Family History Family History Mother Heart disease Father Lung cancer Surgical History Surgical History Hx of appendectomy History of colonoscopy (~09/20/08) History of shoulder surgery (~2010) Social History Social History Housing: House Are you a primary acute care physical therapist to a significant other at home: No Do you presently have visiting nurse or other home services: No Alcohol intake: current Alcohol intake frequency: a few times a week Patient Tobacco Use Status: Former Tobacco user e-Cigarette/Vaping Use: Never Used Second Hand Smoke Exposure: Yes Use of substances other than those prescribed or required for medical reasons: No Have you been hit, kicked, punched, or otherwise hurt by someone within the past year? If so, by whom?: No Are you DNR?: No Advance Directives: No Advance Directives Information Provided: Yes Poor oral hygiene: No service: Yes Current occupational status: retired and disabled Cognitive needs: No Hearing needs: No Vision needs: Yes Meds Allergies Allergy/AdvReac Type Severity Reaction Status Date / Time No Known Allergies Allergy Verified 07/18/24 09:08 Home Medications ?Medication ?Instructions ?Recorded ?Confirmed ?Last Taken ?Type famotidine 20 mg tablet 20 mg PO BID PRN 11/10/23 07/18/24 Unknown History fluticasone 250 mcg-salmeterol 50 1 inh inhalation BID 11/10/23 09/18/24 Unknown History mcg/dose blistr powdr for inhalation ([facility] In[facility]) Exam Height,Weight and Vital Signs: Height 5 ft 9 in Weight 108.409 kg Assessment and Plan Assessment Anesthesia Assessment: Chart Reviewed Documented by User: Alex Goel MD 09/20/24 10:45 [facility] Past Medical History Medical History Secondary osteoarthritis, right shoulder ZACH (obstructive sleep apnea) Allergic asthma Obesity (BMI 30-39.9) Vitamin D deficiency Impaired fasting glucose Pure hypercholesterolemia GERD without esophagitis Family History Family History Mother Heart disease Father Lung cancer Family history of problems with anesthesia: No Surgical History Surgical History Hx of appendectomy History of colonoscopy (~09/20/08) History of shoulder surgery (~2010) History of Problems with Anesthesia: No Social History Social History Housing: House Are you a primary acute care physical therapist to a significant other at home: No Do you presently have visiting nurse or other home services: No Alcohol intake: current Alcohol intake frequency: a few times a week Patient Tobacco Use Status: Former Tobacco user e-Cigarette/Vaping Use: Never Used Second Hand Smoke Exposure: Yes Use of substances other than those prescribed or required for medical reasons: No Have you been hit, kicked, punched, or otherwise hurt by someone within the past year? If so, by whom?: No Are you DNR?: No Advance Directives: No Advance Directives Information Provided: Yes Poor oral hygiene: No service: Yes Current occupational status: retired and disabled Cognitive needs: No Hearing needs: No Vision needs: Yes Meds Allergies Allergy/AdvReac Type Severity Reaction Status Date / Time No Known Allergies Allergy Verified 07/18/24 09:08 Home Medications ?Medication ?Instructions ?Recorded ?Confirmed ?Last Taken ?Type famotidine 20 mg tablet 20 mg PO BID PRN 11/10/23 07/18/24 Unknown History fluticasone 250 mcg-salmeterol 50 1 inh inhalation BID 11/10/23 09/18/24 Unknown History mcg/dose blistr powdr for inhalation ([facility] [employer]) Exam Airway Mallampati Class: II TM Dist: >3cm Neck ROM: Full Loose/Missing/Broken Teeth: No Heart: ok Lungs: ok Assessment and Plan Assessment Anesthesia Assessment: Anesthesia Plan Discussed Final Anesthetic Review Family History of Problems with Anesthesia: No History of Problems with Anesthesia: No NPO: Yes ASA Class: III Final Preanesthetic Review: No Changes in Pt Med Stat, Meds/Allgs Chart Reviewed, Consent Obtained/Reviewed and Anes Risks/Benef Reviewed Patient Risk: Intermediate Procedure Risk: Intermediate Anesthetic Plan Anesthetic Plan: Agree w/ Assess. and Plan and TIVA Disposition: Standard PACU
[2024-09-20 09:35] VITALS: BMI 33.7
[2024-09-20 09:52] VITALS: BP 111/79; PULSE 79; RESP 16; TEMP 36.3; O2SAT 96
[2024-09-20] MEDS: Lactated Ringers 1,000 ML 100 ML IVCONT (10:02)
[2024-09-20 11:45] VITALS: BP 112/59; PULSE 79; RESP 16; TEMP 36.9; O2SAT 97
--- NOTE | 2024-09-20 11:52 | P.BOP_ITS ---
Brief Operative Note Date of Service: 09/20/24 Pre-op diagnosis: GERD, Screening Post-op diagnosis: other (Duodenal ulcers, Gastritis, Hiatal hernia, Diverticulosis) Procedure: EGD with biopsies, Colonoscopy to the cecum and TI Surgeon: Sukhi Dias MD Anesthesia: MAC Was an Replanting Machine Operator used for this Procedure?: No Estimated blood loss (mL): 2.0 Pathology: other (A. Gastric antrum) Condition: stable Disposition: PACU
[2024-09-20 12:00] VITALS: BP 111/69; PULSE 80; RESP 16; TEMP 36.9; O2SAT 96
--- NOTE | 2024-09-20 12:56 | OP_ITS ---
DATE OF SERVICE: 09/20/2024 SURGEON: Sukhi Dias MD INDICATIONS: The patient presents for evaluation of colorectal cancer screening and dysphagia as well as gastroesophageal reflux. Full consent was obtained from him for both procedures, including risks of bleeding and perforation. PREOPERATIVE DIAGNOSIS: POSTOPERATIVE DIAGNOSIS: PROCEDURE PERFORMED: Esophagogastroduodenoscopy with biopsies and colonoscopy to the cecum and terminal ileum. ESTIMATED BLOOD LOSS: COMPLICATIONS: ANESTHESIA: Medication use; monitored anesthesia care. ASSISTANTS: SPECIMENS: PREOPERATIVE DIAGNOSES: Dysphagia, gastroesophageal reflux, and colorectal cancer screening. POSTOPERATIVE DIAGNOSES: Dysphagia, gastroesophageal reflux, and colorectal cancer screening, hiatal hernia, gastritis, duodenal ulcers, diverticulosis, and internal hemorrhoids. DESCRIPTION OF PROCEDURE: The patient was placed in the left lateral decubitus position. The Olympus videogastroscope was passed in the posterior oropharynx and upper esophagus under direct vision. The scope was passed slowly to the distal esophagus. The gastroesophageal junction appeared at 38 weeks. There was some erythema and edema, but no evidence of any ulceration, esophagitis, Shea esophagus, stricture, nor ring. The scope easily entered the stomach. There was a small to moderate-sized hiatal hernia. The scope was advanced to pylorus and the duodenum was cannulated to the descending portion. The 2nd and 3rd portions of duodenum appeared normal. The duodenal bulb had multiple erosions and 2 discrete ulcers measuring approximately 8-10 mm without any sign of bleeding nor visible vessel. The scope was withdrawn back to the stomach. The gastric antrum had areas of erythema and edema, but no ulceration nor mass. There was good peristalsis. Biopsies were obtained from the antrum. The scope was withdrawn. Retroflexed visualizing the proximal stomach carefully, which appeared normal, without any sign of mass or ulceration. The scope was straightened and withdrawn back in the esophagus. Biopsies were obtained at the EG junction at 38 cm. Dilation was not performed given no sign of any stricture or other abnormality. The esophageal mucosa proximal to this appeared normal. There was no evidence of any proximal esophageal rings. The scope was withdrawn from the patient. He was turned around for the colonoscopy. The digital rectal exam revealed no abnormalities. The Olympus video pediatric colonoscope was entered into the rectum and advanced easily to the cecum. Once in the cecum, I did identify normal-appearing cecal pouch with appendiceal orifice and a normal-appearing ileocecal valve. The terminal ileum was cannulated and appeared normal. The scope was withdrawn back in the colon. The entire cecum and ileocecal valve appeared normal. Scope was slowly withdrawn assessing all mucosal surfaces carefully. Preparation was excellent. I did not visualize any sign of polyps, colitis, nor angiodysplasia. There was a mild amount of sigmoid diverticulosis. In the rectum, scope was retroflexed visualizing internal hemorrhoids, but no other pathology. The rectal mucosa appeared normal. Scope was straightened and withdrawn from the patient. He tolerated the procedure well and was returned to recovery area in stable condition. IMPRESSION: 1. Hiatal hernia, gastroesophageal reflux. 2. Gastritis. 3. Duodenal ulcers and duodenitis. 4. Diverticulosis. 5. Internal hemorrhoids. PLAN: The results of the pathology will be checked. If H pylori is present in the gastric biopsies, I would recommend treating that. I shall start him on omeprazole 40 mg daily. This will be to treat his ulcers, but will also decrease any reflux and possible esophageal spasm and dysphagia on that basis. I would recommend a repeat colonoscopy in 10 years. He was advised to avoid all aspirin and NSAIDs long-term given the upper endoscopy findings. He will be seen in followup as well. MD EDEN Hatch/EDITH / [id number]
== END 2024-09-20 12:18 | disposition home or self-care (01) ==
PROVIDERS: PCP Internal Medicine; Visit Provider Internal Medicine
PROC: (CPT 45378; principal; 2024-09-20 10:40)
DX: Z12.11 Encounter for screening for malignant neoplasm of colon (principal); K57.30 Diverticulosis of large intestine without perforation or abscess without bleeding; K64.8 Other hemorrhoids; K59.09 Other constipation; R13.10 Dysphagia, unspecified; K21.9 Gastro-esophageal reflux disease without esophagitis; K29.50 Unspecified chronic gastritis without bleeding; B96.81 Helicobacter pylori [H. pylori] as the cause of diseases classified elsewhere; K26.9 Duodenal ulcer, unspecified as acute or chronic, without hemorrhage or perforation; K44.9 Diaphragmatic hernia without obstruction or gangrene; J45.909 Unspecified asthma, uncomplicated; G47.33 Obstructive sleep apnea (adult) (pediatric); Z79.899 Other long term (current) drug therapy; Z98.890 Other specified postprocedural states
CPT/HCPCS: 45378; 43239; 88305; 88313; 88342; J2003; J2704; J3010

== ENCOUNTER 2024-11-13 10:19 | Outpatient (AMB) | payer BC, SELFPAY ==
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
[2024-11-13 10:21] VITALS: BP 112/82; PULSE 77; O2SAT 94; BMI 34.6
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
--- OUTSIDE RECORDS SUMMARY | 2024-11-13 11:08 | XMS_ITS | Clinical Summary ---
Author Organization [facility] Address [address] [place] [address] Care Team Providers Care Game Operator Name Role Phone Ney Antunez MD Primary Care Provider [phone] Allergies Active Allergy Reactions Criticality Noted Date [...] Influencers of Health Screening 04/22/2022 COVID-19 Vaccine (1 - 2023-2 5 season) 2024 Influenza Vaccine (#1) 2025 HIB Vaccines Aged Out No longer eligi [...] age to complete this topic Meningococcal B Vaccine Aged Out No l onger eligible based on patient's age to complete [...] age to complete this topic Care Teams Game Operator Relationship Specialty Start Date End Date Ney Antunez MD [address] [place] [address] PCP - General Internal Medicine 12/18/21
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
== END 2024-11-13 11:09 | disposition home or self-care (01) ==
LOC: HO.HMCH 10:20
PROVIDERS: PCP Internal Medicine; Visit Provider Internal Medicine
DX: Z00.00 Encounter for general adult medical examination without abnormal findings (principal); E78.00 Pure hypercholesterolemia, unspecified; R73.01 Impaired fasting glucose; G47.33 Obstructive sleep apnea (adult) (pediatric); J45.909 Unspecified asthma, uncomplicated; K21.9 Gastro-esophageal reflux disease without esophagitis; R79.89 Other specified abnormal findings of blood chemistry; M19.211 Secondary osteoarthritis, right shoulder; E55.9 Vitamin D deficiency, unspecified; K59.00 Constipation, unspecified; R68.82 Decreased libido; F43.10 Post-traumatic stress disorder, unspecified

== ENCOUNTER → 2024-11-13 10:19 | Outpatient (BNVA) | payer BC, SELFPAY | PROVIDERS: PCP Internal Medicine; Visit Provider Internal Medicine | DX: Z00.00 Encounter for general adult medical examination without abnormal findings (principal); E78.00 Pure hypercholesterolemia, unspecified; R73.01 Impaired fasting glucose; G47.33 Obstructive sleep apnea (adult) (pediatric); J45.909 Unspecified asthma, uncomplicated; K21.9 Gastro-esophageal reflux disease without esophagitis; R79.89 Other specified abnormal findings of blood chemistry; M19.211 Secondary osteoarthritis, right shoulder; E55.9 Vitamin D deficiency, unspecified; K59.00 Constipation, unspecified; R68.82 Decreased libido; F43.10 Post-traumatic stress disorder, unspecified; E66.9 Obesity, unspecified; Z68.34 Body mass index [BMI] 34.0-34.9, adult | CPT/HCPCS: 96127 ==